=== PATIENT | female | born 1935 | race Caucasian/White ===

== ENCOUNTER → 2017-01-06 | Outpatient (CLI) | payer MEDICARE, BC ==
[2017-01-06 15:18] LABS: Amorphous Sediment,Urine Rare /hpf; Appearance,Urine Clear (Clear); Bilirubin,Urine Negative (Negative); Glucose,Urine (UA) Negative (Negative); Ketones,Urine Negative (Negative); Leukocyte Esterase,Urine Trace (Negative); Mucus,Urine Rare /hpf; Nitrite,Urine Negative (Negative); Particle Count 1363; Protein,Urine Negative (Negative); RBC,Urine 1 /hpf (0-5); Specific Gravity,Urine 1.017 (1.001-1.035); Squamous Epithelial Cell,Urine 2 /hpf (0-4); UA Billing (MACRO vs. MICRO) MICRO; Urobilinogen,Urine <2.0 mg/dL (<2.0); WBC,Urine 6 /hpf (0-5)
== END | disposition home or self-care (01) ==
LOC: LABWHC1 14:09
PROVIDERS: ATTEND Family Medicine
DX: N39.0 Urinary tract infection, site not specified (principal)
CPT/HCPCS: 81001; 87086

== ENCOUNTER 2017-06-29 10:02 | Inpatient (IN) | payer MEDICARE, BC ==
[2017-06-29 12:48] VITALS: BMI 26.2
--- NOTE | 2017-06-29 15:28 | US ---
EXAMINATION TYPE: US abdomen complete DATE OF EXAM: 06/29/2017 COMPARISON: NONE CLINICAL HISTORY: abdominal pain. EXAM MEASUREMENTS: Liver Length: 13.4 cm Gallbladder Wall: 0.1 cm CBD: 0.6 cm Spleen: 9.3 cm Right Kidney: 10.5 x 4.2 x 3.3 cm Left Kidney: 10.4 x 5.2 x 4.9 cm Pancreas: wnl tail obscured by bowel gas Liver: partially Obscured by overlying bowel gas Gallbladder: wnl Evidence for sonographic Neely's sign: no CBD: Within normal limits of this age group Spleen: wnl Right Kidney: wnl Left Kidney: mid pole cyst =0.9 x 1.0 x 0.8 cm and the kidneys show no hydronephrosis, cortical med ullary differentiation is maintained. Upper IVC: wnl as visualized Abd Aorta: wnl as visualized There is no ascites. IMPRESSION: Partially limited exam. No significant abnormalities evident.
[2017-06-29] MEDS: MEMANTINE 10 MG TAB PO SCH (20:52)
[2017-06-29] MEDS: LISINOPRIL 10 MG TAB PO SCH (20:52)
[2017-06-29] MEDS: METOPROLOL TARTRATE 25 MG TAB PO SCH (20:52)
[2017-06-29] MEDS ORDERED: ATORVASTATIN 80 MG TAB PO SCH (21:00)
[2017-06-29] MEDS ORDERED: DONEPEZIL 10 MG TAB PO SCH (21:00)
--- NOTE | 2017-06-29 22:13 | XR ---
EXAMINATION TYPE: XR chest 2V DATE OF EXAM: 06/29/2017 COMPARISON: Prior chest x-ray 11/07/2016 HISTORY: Dyspnea TECHNIQUE: Frontal and lateral views of the chest are obtained. FINDINGS: There is no focal air space opacity, pleural effusion, or pneumothorax seen. The cardiac silhouette size is stable, heart is enlarged. The patient is rotated. Prominent lung volumes may be indicative of COPD. Probable coronary artery calcification or stent noted. The osseous structures are intact. IMPRESSION: No acute cardiopulmonary process. Stable cardiomegaly.
[2017-06-30 06:19] LABS: Basophils % (A) 0 %; CH 27.6; CHCM 32.8; Eosinophils # (A) 0.2 k/uL (0-0.7); Eosinophils % (A) 3 %; HCT 39.5 % (34.0-46.0); HDW 2.43; HGB 13.7 gm/dL (11.4-16.0); Luc # (Auto) 0.14; Luc % (Auto) 2; Lymphocytes % (A) 34 %; MCH 29.2 pg (25.0-35.0); MCHC 34.6 g/dL (31.0-37.0); MCV 84.4 fL (80.0-100.0); Mean Platelet Volume 7.3; Monocytes # (A) 0.5 k/uL (0-1.0); Monocytes % (A) 5 %; Neutrophils # (A) 4.9 k/uL (1.3-7.7); Neutrophils % (A) 56 %; RBC 4.68 m/uL (3.80-5.40); RDW 13.6 % (11.5-15.5); WBC 8.7 k/uL (3.8-10.6); WBC (Perox) 8.56
[2017-06-30] MEDS ORDERED: LEVOTHYROXINE 25 MCG TAB PO SCH (06:30)
[2017-06-30 07:01] VITALS: RESP 12
[2017-06-30 07:01] LABS: Glucose,Whole Blood 85 mg/dL (75-99)
[2017-06-30 07:03] LABS: ALT 22 U/L (9-52); AST 26 U/L (14-36); Alkaline Phosphatase 108 U/L (38-126); Anion Gap 10 mmol/L; Blood Urea Nitrogen 19 mg/dL (7-17); Calcium 8.3 mg/dL (8.4-10.2); Carbon Dioxide 23 mmol/L (22-30); Chloride 113 mmol/L (98-107); Glucose 81 mg/dL (74-99); Non-African American GFR(MDRD) 51 (>60 ml/min/1.73 sqM); Potassium 4.2 mmol/L (3.5-5.1); Sodium 146 mmol/L (137-145); Total Bilirubin 0.6 mg/dL (0.2-1.3); Total Protein 5.8 g/dL (6.3-8.2)
[2017-06-30] MEDS: LISINOPRIL 10 MG TAB PO SCH (07:04)
[2017-06-30] MEDS: MEMANTINE 10 MG TAB PO SCH (07:05)
[2017-06-30] MEDS: METOPROLOL TARTRATE 25 MG TAB PO SCH (07:05)
[2017-06-30] MEDS ORDERED: CLOPIDOGREL 75 MG TAB PO SCH (09:00)
[2017-06-30] MEDS ORDERED: ASPIRIN 81 MG PO SCH (09:00)
[2017-06-30] MEDS ORDERED: MONTELUKAST 10 MG TAB PO SCH (09:00)
[2017-06-30] MEDS ORDERED: SODIUM CHLORIDE 0.9% 1,000 ML IV SCH (09:30)
[2017-06-30] MEDS ORDERED: RX INFO: IV CONTRAST WAS GIVEN 1 EACH MISC MISCELLANE PRN (09:46)
--- NOTE | 2017-06-30 11:01 | CT ---
EXAMINATION TYPE: CT brain wo con DATE OF EXAM: 06/30/2017 COMPARISON: 11/07/2016 INDICATION: Patient poor historian. History of dementia. Rule out CVA. DLP: 742.7 mGycm, Automated exposure control for dose reduction was used. CONTRAST: None CT of the brain is performed utilizing 3 mm thick sections through the posterior fossa and 3 mm thick sections through the remaining calvarium. Study is performed within 24 hours of arrival to the hosp ital. No abnormal hyperdensity is present to suggest an acute intracranial hemorrhage. No mass lesion is evident. No acute infarcts are evident. There is mild periventricular white matter hypodensity, likely on the basis of chronic white matter ischemic changes. Ventricles and sulci are prominent for the patient age. Paranasal sinuses and mastoid air cells within the [id number] are clear. IMPRESSIONS: 1. Atrophy with mild periventricular white matter ischemic changes, stable from October 2016
--- NOTE | 2017-06-30 11:17 | CT ---
EXAMINATION TYPE: CT abdomen w con DATE OF EXAM: 06/30/2017 COMPARISON: NONE INDICATION: Patient poor historian. Patient has abdominal pain. DLP: 398.8 mGycm, Automated exposure control for dose reduction was used. CONTRAST: 80 mL of Visipaque 320. Study performed without Oral Contrast TECHNIQUE: Axial images were obtained from above the diaphragm to the pubic rami in the axial plane a t 5 mm thick sections. Reconstructed images are reviewed on the computer in the coronal plane. FINDINGS: Limited CT sections are obtained the lung bases. Minimal areas of pneumonitis are at the lung bases which can be related to subsegmental atelectasis. Hiatal hernia is present. Some coronary artery calc ification is not excluded.. CT ABDOMEN: Liver: Normal Spleen: Normal Pancreas: Normal Adrenal glands: The adrenal glands are normal. Gallbladder: Normal Kidneys: No masses are evident. No hydronephrosis is present. No cysts are present. Delayed images were obtained through the kidneys, which remain unremarkable. Aorta: Vascular calcification is within the aorta. Inferior vena cava: Normal. Loops of bowel within the abdomen and pelvis are normal. Studies without oral contrast limiting t heir evaluation. Some distal descending colon diverticular changes are evident. Few scattered diverti culi are within the transverse and ascending colon within the [id number]. IMPRESSIONS: 1. Hiatal hernia. 2. Diverticulosis without acute diverticulitis within the visualized colon.
[2017-06-30] MEDS ORDERED: CHOLECALCIFEROL 1,000 UNIT TAB PO SCH (12:00)
[2017-06-30] MEDS ORDERED: MULTIVITAMINS, THERA 1 EACH TAB PO SCH (12:00)
[2017-06-30 12:20] LABS: Glucose,Whole Blood 145 mg/dL (75-99)
--- NOTE | 2017-06-30 12:46 | P.GSCN ---
History of Present Illness Consult date: 06/30/17 Reason for Consult: Abdominal pain History of present illness: 81-year-old female is being seen for a surgical evaluation at the request of the attending for a chief complaint of diffuse abdominal pain with frequent stooling. 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 Has no medical history recall is not able to provide any medical history or give information about current event patient does have a history of Alzheimer with dementia. Health history has been obtained by the 2 daughters at the bedside. The 2 daughters state the last 5 weeks they have been staying with her mother the house while her father recuperates from hernia repair. The 2 daughters state that they have noticed over the last several weeks the patient would be incontinent of stool especially at night. They state that she may have several loose watery stools. No blood noted in the stool Patient currently is resting comfortably in bed and palpating the abdominal wall does not elicit any facial grimacing. Questioning patient if patient is having any abdominal pain the patient stating no According to the daughter patient has had a poor appetite for the past several weeks not aware of the patient's past surgical history or medical history when questioning the daughters also state not certain if the mother has ever had a colonoscopy. Reviewing the prior computerized record in October 2016 past surgical history indicated patient has had cataract surgery, colonoscopy, tonsillectomy. Reviewing the computerized record in July 2014 patient did have a heart catheterization involving a single-vessel the LAD done by Dr. Whitt Review of Systems Not able to adequately obtain Past Medical History Past Medical History: Dementia, Diabetes Mellitus, Hypertension, Memory Impairment, Osteoarthritis (OA) History of Any Multi-Drug Resistant Organisms: None Reported Past Surgical History: Tonsillectomy Additional Past Surgical History / Comment(s): cataract surgery, colonoscopy, heart stent 2014 Past Anesthesia/Blood Transfusion Reactions: No Reported Reaction Past Psychological History: No Psychological Hx Reported Smoking Status: Never smoker Past Alcohol Use History: Rare Past Drug Use History: None Reported - Past Family History Mother Family Medical History: Asthma Father Family Medical History: Myocardial Infarction (SD) Additional Family Medical History / Comment(s): at 59 Medications and Allergies Home Medications Medication Instructions Recorded Confirmed Type Donepezil [Aricept] 10 mg PO HS 07/10/14 06/29/17 History Focus-Macular 1 tab PO BID 07/10/14 06/29/17 History Levothyroxine Sodium [Synthroid] 25 mcg PO DAILY 07/10/14 06/29/17 History Aspirin EC [Ecotrin Low Dose] 81 mg PO DAILY 11/07/16 06/29/17 History Cholecalciferol [Vitamin D3] 2,000 unit PO DAILY 11/07/16 06/29/17 History Diclofenac Sodium [Voltaren] 50 mg PO BID 11/07/16 06/29/17 History Memantine [Namenda] 10 mg PO BID 11/07/16 06/29/17 History Montelukast [Singulair] 10 mg PO DAILY 11/07/16 06/29/17 History Multivitamin [Multivitamins Adult 2 tab PO DAILY 06/29/17 06/29/17 History Gummies] Allergies Allergy/AdvReac Type Severity Reaction Status Date / Time Penicillins Allergy Unknown Verified 11/07/16 14:35 propoxyphene HCl Allergy Confusion Verified 11/07/16 14:35 [From Darvon] Surgical - Exam Vital Signs Temp Pulse Resp BP Pulse Ox 97 F L 75 16 197/81 95 06/29/17 12:06 06/29/17 12:06 06/29/17 12:06 06/29/17 12:06 06/29/17 12:06 GENERAL APPEARANCE: 81-year-old female patient is alert, oriented to self and place able to identify daughter's in no acute distress. Pleasant cooperative VITAL SIGNS: Reviewed HEENT: Head is normocephalic and atraumatic. Pupils are equal and reactive. The nares are patent. Oropharynx is clear without lesions. NECK: Supple without lymphadenopathy. Traches midline. HEART: S1, S2. Regular rate and rhythm. Denying chest pain no murmur LUNGS: No crackles or wheezes are heard. Adequate air movement bilaterally ABDOMEN: Soft, nontender, nondistended with good bowel sounds. No peritoneal signs. No palpable organomegaly or masses. EXTREMITIES: Normal skin color and turgor. No cyanosis, rash, ulceration, clubbing or edema. Radial pedal pulses are 2/4 bilaterally. Results - Labs 06/30/17 06:03 06/30/17 06:03 Abnormal Lab Results - Last 24 Hours (Table) 06/30/17 06/30/17 Range/Units 06:03 12:18 Sodium 146 H (137-145) mmol/L Chloride 113 H (98-107) mmol/L BUN 19 H (7-17) mg/dL POC Glucose (mg/dL) 145 H (75-99) mg/dL Calcium 8.3 L (8.4-10.2) mg/dL Total Protein 5.8 L (6.3-8.2) g/dL Albumin 3.3 L (3.5-5.0) g/dL Diabetes panel 06/30/17 Range/Units 06:03 Sodium 146 H (137-145) mmol/L Potassium 4.2 (3.5-5.1) mmol/L Chloride 113 H (98-107) mmol/L Carbon Dioxide 23 (22-30) mmol/L BUN 19 H (7-17) mg/dL Creatinine 1.04 (0.52-1.04) mg/dL Glucose 81 (74-99) mg/dL Calcium 8.3 L (8.4-10.2) mg/dL AST 26 (14-36) U/L ALT 22 (9-52) U/L Alkaline Phosphatase 108 (38-126) U/L Total Protein 5.8 L (6.3-8.2) g/dL Albumin 3.3 L (3.5-5.0) g/dL Calcium panel 06/30/17 Range/Units 06:03 Calcium 8.3 L (8.4-10.2) mg/dL Albumin 3.3 L (3.5-5.0) g/dL Pituitary panel 06/30/17 Range/Units 06:03 Sodium 146 H (137-145) mmol/L Potassium 4.2 (3.5-5.1) mmol/L Chloride 113 H (98-107) mmol/L Carbon Dioxide 23 (22-30) mmol/L BUN 19 H (7-17) mg/dL Creatinine 1.04 (0.52-1.04) mg/dL Glucose 81 (74-99) mg/dL Calcium 8.3 L (8.4-10.2) mg/dL Adrenal panel 06/30/17 Range/Units 06:03 Sodium 146 H (137-145) mmol/L Potassium 4.2 (3.5-5.1) mmol/L Chloride 113 H (98-107) mmol/L Carbon Dioxide 23 (22-30) mmol/L BUN 19 H (7-17) mg/dL Creatinine 1.04 (0.52-1.04) mg/dL Glucose 81 (74-99) mg/dL Calcium 8.3 L (8.4-10.2) mg/dL Total Bilirubin 0.6 (0.2-1.3) mg/dL AST 26 (14-36) U/L ALT 22 (9-52) U/L Alkaline Phosphatase 108 (38-126) U/L Total Protein 5.8 L (6.3-8.2) g/dL Albumin 3.3 L (3.5-5.0) g/dL Assessment and Plan Plan: Impression Present on admission abdominal pain unclear etiology Alzheimer's with dementia no behavior disturbance Coronary artery disease with prior coronary stenting LAD 2013 History of frequent falls CAT scan abdomen and pelvis done on 30 of June shows hiatal hernia diverticulosis with no evidence of diverticulitis Present on admission a history of frequent loose stools possible irritable bowel syndrome hypertension Plan Check stool studies No evidence of an acute abdomen Dietary to instruct patient on a diverticulosis diet Resume home meds as appropriate further surgical recommendations pending DVT and GI prophylaxis May benefit from a colonoscopy The above impression and plan of care have been discussed and directed by signing physician. Holley Kay nurse practitioner acting as scribe for signing physician.
--- NOTE | 2017-06-30 15:05 | CONS ---
Mrs. Marleny Sorenson is a 81-year-old lady with a known diagnosis of CAD, previous LAD stenting performed by Dr. Jenny Whitt as well as dilatation of diagonal branch in 2014. She has hypertension, hypothyroidism, bronchial asthma. She was admitted to the hospital by Dr. Prince Chatman with complaints of diarrhea that was persistent and dehydration. While she was here she became hypertensive and I was asked to see her in this regard. I saw the patient and also talked to the family. The patient at this time is in no distress, she is comfortable. Denies chest pain. Diarrhea has resolved. She has no shortness of breath. She is resting comfortably. There is no EKG in the chart and I requested for an EKG to performed. Her blood pressure which was elevated has come back to normal once her medications were resumed. She has a history of hypertension, bronchial asthma, hyperlipidemia, previous PCI. Her laboratory data suggests that her initial troponin was normal. Her renal function is normal and electrolyte profile and hemoglobin are acceptable. Platelet count is 158. PAST MEDICAL HISTORY: 1. Hypertension. 2. Hypercholesterolemia. 3. CAD with previous LAD stenting in 2013. 4. History of nondescript abdominal pain on and off. 5. History of bronchial asthma. MEDICATIONS AT HOME: Include Singulair, Lopressor, Namenda, Synthroid, Vasotec , Plavix, aspirin 81 mg daily, atorvastatin. ALLERGIES: PENICILLIN AND DARVON. On examination, blood pressure is 144/70, pulse rate is 68 per minute and regular. HEENT: Unremarkable. Fundus was not examined by me. NECK: Supple. There is no JVD. I do not hear a carotid bruit. HEART: Reveals S1/S2 heard normally. There is a soft systolic murmur left lower sternal border. LUNGS: Clear. ABDOMEN: Soft, nontender. LOWER EXTREMITIES: Reveal normal pulses. No edema. CENTRAL NERVOUS SYSTEM: Normal. EKG is pending. IMPRESSION: 1. Patient is here with diarrhea but the diarrhea has resolved. Electrolytes look quite alright. There is no reflexion of any electrolyte imbalance at this time. 2. Stable coronary artery disease with previous stenting. No evidence of any angina. 3. Hypertension which was not well controlled yesterday, appears to be under good control with resumption of medications. 4. Bronchial asthma. 5. Hypothyroidism. RECOMMENDATIONS: I am recommending that her current medical regimen is good. We can continue the same medications and she can be discharged whenever it is okay with Dr. Prince Chatman. Her BP has been optimized. Her medications including beta marco a and lisinopril have been resumed. I am recommending that we discontinue Plavix and continue aspirin 81 mg daily and she can then be discharged. I discussed my thoughts in detail with the patient. Thank you very much for the consult. NEEL
[2017-06-30 15:23] VITALS: BP 143/82; PULSE 97; TEMP 98.4
[2017-06-30 17:05] LABS: Glucose,Whole Blood 112 mg/dL (75-99)
[2017-06-30] MEDS ORDERED: LISINOPRIL 10 MG TAB PO SCH (21:00)
[2017-06-30] MEDS ORDERED: FAMOTIDINE 20 MG TAB PO SCH (21:00)
[2017-06-30] MEDS ORDERED: LISINOPRIL 20 MG TAB PO SCH (21:00)
[2017-07-01] MEDS ORDERED: LISINOPRIL 20 MG TAB PO SCH (09:00)
--- NOTE | 2017-08-21 07:15 | HP ---
HISTORY AND PHYSICAL CHIEF COMPLAINT: 81-year-old, white female, history of coronary artery disease. Previous LAD stenting with hypertension, hypothyroidism, asthma. She had diarrhea significant nature persistent. She was dehydrated and became hypertensive with acceleration and severe dehydration. At which time she was admitted to the hospital. She has a history of bronchial asthma, dyslipidemia, hypertension, coronary artery disease with stenting in 2013, bronchial asthma. HOME MEDICINES: 1. Singular. 2. Lopressor. 3. Namenda. 4. Synthroid. 5. Vasotec. 6. Plavix. 7. Aspirin. 8. Atorvastatin. ALLERGIES: PENICILLIN AND DARVON. PHYSICAL EXAMINATION: Blood pressure 144/70, pulse is 68 and regular. HEENT: Normocephalic, atraumatic. Neck is supple. No JVD. Heart are S1, S2. Lungs are clear. Abdomen is soft, nontender. Extremities no cyanosis, clubbing, or edema. EKG is pending. ASSESSMENT: 1. Dehydration, diarrhea. 2. Dizziness secondary to dehydration. 3. Stable coronary artery disease with stents. 4. Hypertension. 5. Bronchial asthma. 6. Hypothyroidism. PLAN: IV fluid, rehydration for dizziness and diarrhea will be assessed by surgeon or Gastroenterology doctor. Hypertension acceleration will be treated with beta blockers, lisinopril and Cardiology consult for hypertension acceleration. MMODL / IJN: [id number] /
== END 2017-06-30 16:10 | disposition home or self-care (01) | DRG 641 ==
LOC: 3SUR 11:49
PROVIDERS: ADMIT Family Medicine; ATTEND Family Medicine
DX: E86.0 Dehydration (principal); G30.9 Alzheimer's disease, unspecified; R15.9 Full incontinence of feces; E11.9 Type 2 diabetes mellitus without complications; F02.80 Dementia in other diseases classified elsewhere, unspecified severity, without behavioral disturbance, psychotic disturbance, mood disturbance, and anxiety; K58.0 Irritable bowel syndrome with diarrhea; R10.9 Unspecified abdominal pain; I10 Essential (primary) hypertension; I25.10 Atherosclerotic heart disease of native coronary artery without angina pectoris; E03.9 Hypothyroidism, unspecified; E78.00 Pure hypercholesterolemia, unspecified; R29.6 Repeated falls; M19.90 Unspecified osteoarthritis, unspecified site; K57.90 Diverticulosis of intestine, part unspecified, without perforation or abscess without bleeding; J45.909 Unspecified asthma, uncomplicated; K44.9 Diaphragmatic hernia without obstruction or gangrene; Z88.5 Allergy status to narcotic agent; Z88.0 Allergy status to penicillin; Z79.82 Long term (current) use of aspirin; Z79.899 Other long term (current) drug therapy; Z82.5 Family history of asthma and other chronic lower respiratory diseases; Z95.5 Presence of coronary angioplasty implant and graft; Z82.49 Family history of ischemic heart disease and other diseases of the circulatory system; Z98.49 Cataract extraction status, unspecified eye; Z91.81 History of falling; Z79.02 Long term (current) use of antithrombotics/antiplatelets; Z79.1 Long term (current) use of non-steroidal anti-inflammatories (NSAID)
CPT/HCPCS: 70450; 71020; 74160; 76700; 80053; 83690; 83880; 84484; 85025; 85379; 93005

== ENCOUNTER 2017-07-27 08:02 | Day surgery (SDC) | payer MEDICARE, BC ==
[2017-07-26 10:08] VITALS: BMI 26.2
[~2017-07-27 08:02] MED LIST: LACTATED RINGERS 1,000 ML IV SCH; LIDOCAINE 1% 20 ML VIAL (10MG/ML) FOR IV START INTRADERMA PRN
[2017-07-27 08:49] VITALS: TEMP 98
[2017-07-27] MEDS ORDERED: GLYCOPYRROLATE 0.2 MG/ML 2 ML VIAL ONE (09:02)
[2017-07-27] MEDS ORDERED: PROPOFOL 10 MG/ML 20 ML VIAL IV ONE (09:02)
[2017-07-27] MEDS ORDERED: LIDOCAINE 1% INJ 10MG/ML (20 ML MDV) ONE (09:02)
--- NOTE | 2017-07-27 09:06 | P.GSHP ---
History of Present Illness H&P Date: 07/27/17 Chief Complaint: GERD, dysphagia, diverticulitis This is a 81-year-old female who's had complaints of abdominal pain. Her recent CAT scan shows evidence of a hiatal hernia and diverticulitis. She presents today for colonoscopy. Past Medical History Past Medical History: Dementia, Diabetes Mellitus, Hyperlipidemia, Hypertension , Memory Impairment, Osteoarthritis (OA), Thyroid Disorder Additional Past Medical History / Comment(s): ALZHEIMER'S History of Any Multi-Drug Resistant Organisms: None Reported Past Surgical History: Heart Catheterization With Stent, Tonsillectomy Additional Past Surgical History / Comment(s): cataract surgery, colonoscopy, Past Anesthesia/Blood Transfusion Reactions: No Reported Reaction Date of Last Stent Placement:: 2014 Smoking Status: Never smoker - Past Family History Mother Family Medical History: Asthma Father Family Medical History: Deep Vein Thrombosis (DVT), Myocardial Infarction (NM) Additional Family Medical History / Comment(s): at 59 Sister(s) Family Medical History: Cancer Additional Family Medical History / Comment(s): 2 SISTERS HAD CANCER Medications and Allergies Home Medications Medication Instructions Recorded Confirmed Type Donepezil [Aricept] 10 mg PO HS 07/10/14 07/27/17 History Focus-Macular 1 tab PO BID 07/10/14 07/27/17 History Levothyroxine Sodium [Synthroid] 25 mcg PO DAILY 07/10/14 07/27/17 History Atorvastatin [Lipitor] 80 mg PO HS #30 tab 07/17/14 07/27/17 Rx Clopidogrel [Plavix] 75 mg PO DAILY #30 tab 07/17/14 07/27/17 Rx Enalapril [Vasotec] 5 mg PO BID #60 tab 07/17/14 07/27/17 Rx Metoprolol Tartrate [Lopressor] 25 mg PO BID #60 tab 07/17/14 07/27/17 Rx Nitroglycerin Sl Tabs [Nitrostat] 0.4 mg SUBLINGUAL Q5M PRN #25 tab 07/17/14 Rx Aspirin EC [Ecotrin Low Dose] 81 mg PO DAILY 11/07/16 07/27/17 History Cholecalciferol [Vitamin D3] 2,000 unit PO DAILY 11/07/16 07/27/17 History Diclofenac Sodium [Voltaren] 50 mg PO BID 11/07/16 07/27/17 History Montelukast [Singulair] 10 mg PO DAILY 11/07/16 07/27/17 History Multivitamin [Multivitamins Adult 2 tab PO DAILY 06/29/17 07/27/17 History Gummies] Allergies Allergy/AdvReac Type Severity Reaction Status Date / Time Penicillins Allergy Unknown Verified 07/27/17 08:22 propoxyphene HCl Allergy Confusion Verified 07/27/17 08:22 [From Darryl] Surgical - Exam Vital Signs Temp Pulse Resp BP Pulse Ox 98.0 F 56 L 16 158/58 99 07/27/17 08:48 07/27/17 08:48 07/27/17 08:48 07/27/17 08:48 07/27/17 08:48 - General well developed, no distress - Eyes PERRL - ENT normal pinna - Neck no masses - Respiratory normal expansion - Cardiovascular Rhythm: regular - Abdomen Abdomen: soft, non tender Assessment and Plan Plan: History of. Xylocaine diverticulitis. We'll perform EGD and colonoscopy.
[2017-07-27 09:11] LABS: Glucose,Whole Blood 109 mg/dL (75-99)
--- NOTE | 2017-07-27 09:41 | P.OP ---
Date of Procedure: 07/27/17 Preoperative Diagnosis: GERD Diverticulitis Postoperative Diagnosis: Antral gastritis Large hiatal hernia Esophagitis Severe diverticulosis of sigmoid left colon Procedure(s) Performed: EGD and colonoscopy Anesthesia: MAC Surgeon: Blu Figueroa Pathology: other (Antrum, esophagus) Condition: stable Disposition: PACU Description of Procedure: The patient's placed on the endoscopy table in the lateral position. She received IV sedation. The gastroscope placed oropharynx and passed in the esophagus and into the stomach. The scope was then placed through the pylorus. The first second portion of the duodenum appeared normal. The scope was then brought back the antrum is appeared mildly inflamed. A biopsies performed. The scope was then retroflexed and the remainder of the stomach appeared normal. There was a large hiatal hernia seen. The GE junction was at 37 cm. The distal esophagus was mildly inflamed and a biopsies performed. The proximal esophagus. Normal. The scope was withdrawn for patient. Next digital rectal exam was performed which revealed no abnormalities. The flexible colonoscope was then placed patient anus passed throughout the entire colon. The ileocecal valve sutures. The cecum, ascending and transverse colon appeared normal. In the descending; there is severe diverticulosis. There is known to back to diverticulitis. The scope was then brought back the rectum and this appeared normal. Scope was withdrawn for patient.
[2017-07-27 09:45] VITALS: RESP 16
[2017-07-27 10:08] VITALS: BP 126/74; PULSE 75
== END 2017-07-27 10:27 | disposition home or self-care (01) ==
LOC: ORWHC2ENDO 08:02
PROVIDERS: ATTEND Surgery
DX: K29.50 Unspecified chronic gastritis without bleeding (principal); K20.9 Esophagitis, unspecified; K44.9 Diaphragmatic hernia without obstruction or gangrene; K57.30 Diverticulosis of large intestine without perforation or abscess without bleeding; E11.9 Type 2 diabetes mellitus without complications; E78.5 Hyperlipidemia, unspecified; I10 Essential (primary) hypertension; M19.90 Unspecified osteoarthritis, unspecified site; E07.9 Disorder of thyroid, unspecified; Z95.5 Presence of coronary angioplasty implant and graft; G30.9 Alzheimer's disease, unspecified; F02.80 Dementia in other diseases classified elsewhere, unspecified severity, without behavioral disturbance, psychotic disturbance, mood disturbance, and anxiety; I25.10 Atherosclerotic heart disease of native coronary artery without angina pectoris; Z79.02 Long term (current) use of antithrombotics/antiplatelets; Z79.82 Long term (current) use of aspirin; Z79.899 Other long term (current) drug therapy; Z88.0 Allergy status to penicillin; Z88.8 Allergy status to other drugs, medicaments and biological substances
CPT/HCPCS: 88305; 88342; 45378; 43239; J2001; J2704

== ENCOUNTER → 2017-08-18 | Outpatient (CLI) | payer MEDICARE, BC ==
--- NOTE | 2017-08-22 07:17 | MM ---
Reason for exam: screening (asymptomatic). Last mammogram was performed 1 year ago. History: Patient is postmenopausal. Family history of breast cancer in aunt and breast cancer in sister at age 25. 2 benign excisional biopsies of the right breast. Physical Findings: A clinical breast exam by your physician is recommended on an annual basis and results should be correlated with mammographic findings. MG Screening Mammo w CAD Bilateral CC and MLO view(s) were taken. Prior study comparison: August 11, 2016, bilateral MG 3d screening mammo w/cad. July 02, 2015, bilateral MG screening mammo w CAD. The breast tissue is almost entirely fat. Bilateral benign secretory calcifications. No significant changes when compared with prior studies. ASSESSMENT: Negative, BI-RAD 1 RECOMMENDATION: Routine screening mammogram of both breasts in 1 year.
== END | disposition home or self-care (01) ==
LOC: RADMAMWWP 16:41
PROVIDERS: ATTEND Family Medicine
DX: Z12.31 Encounter for screening mammogram for malignant neoplasm of breast (principal)

== ENCOUNTER 2019-07-10 12:18 | Inpatient (IN) | payer BC, MEDICARE ==
[2019-07-10] MEDS ORDERED: ASPIRIN 81 MG PO STA (12:45)
[2019-07-10] MEDS ORDERED: NITROGLYCERIN OINT 1 INCH/GM PACKET TOPICAL STA (12:45)
--- NOTE | 2019-07-10 13:54 | XR ---
EXAMINATION TYPE: XR chest 2V DATE OF EXAM: 07/10/2019 COMPARISON: 06/29/2017 HISTORY: 83-year-old female with chest pain TECHNIQUE: AP and lateral views FINDINGS: Heart is mildly enlarged. Diffuse interstitial prominence. No consolidation or pleural effusion. IMPRESSION: Mild cardiomegaly. Diffuse interstitial densities likely in part chronic. Correlate for possible mild pulmonary vascular congestion.
--- NOTE | 2019-07-10 13:57 | ED ---
General Adult HPI - General Chief complaint: Chest Pain Stated complaint: chest pain Time Seen by Provider: 07/10/19 12:30 Source: family, RN notes reviewed Mode of arrival: wheelchair Limitations: altered mental status - History of Present Illness Initial comments: This is an 83-year-old female who is brought into the emergency department by her . Patient is unable to communicate however somehow believes the patient is having chest pain though she is unable to tell us. states she was putting her hands on her chest or upper belly earlier today and then vomited times one he gave her 3 nitroglycerin at home. Patient still was occasionally putting her hands on her upper belly and chest and so he determined that she was having chest pain and decided to bring the patient to the emergency department. Patient cannot give any history. states the patient has had no recent fevers she had no time appeared to be short of breath. The patient had only 1 of vomiting and no episodes of diarrhea. - Related Data Home Medications Medication Instructions Recorded Confirmed Donepezil [Aricept] 10 mg PO DAILY 07/10/14 07/10/19 Levothyroxine Sodium [Synthroid] 25 mcg PO DAILY 07/10/14 07/10/19 Aspirin EC [Ecotrin Low Dose] 81 mg PO DAILY 11/07/16 07/10/19 Cholecalciferol [Vitamin D3] 1,000 unit PO DAILY 11/07/16 07/10/19 Diclofenac Sodium [Voltaren] 50 mg PO DAILY 11/07/16 07/10/19 Memantine [Namenda] 10 mg PO BID 07/10/19 07/10/19 Previous Rx's Medication Instructions Recorded Atorvastatin [Lipitor] 80 mg PO HS #30 tab 07/17/14 Enalapril [Vasotec] 5 mg PO BID #60 tab 07/17/14 Metoprolol Tartrate [Lopressor] 25 mg PO BID #60 tab 07/17/14 Nitroglycerin Sl Tabs [Nitrostat] 0.4 mg SUBLINGUAL Q5M PRN #25 tab 07/17/14 Allergies Allergy/AdvReac Type Severity Reaction Status Date / Time Penicillins Allergy Unknown Verified 07/10/19 13:02 propoxyphene HCl Allergy Confusion Verified 07/10/19 13:02 [From Darryl] Review of Systems ROS Statement: Those systems with pertinent positive or pertinent negative responses have been documented in the HPI. ROS Other: All systems not noted in ROS Statement are negative. Past Medical History Past Medical History: Dementia, Diabetes Mellitus, Hyperlipidemia, Hypertension, Memory Impairment, Osteoarthritis (OA), Thyroid Disorder Additional Past Medical History / Comment(s): ALZHEIMER'S History of Any Multi-Drug Resistant Organisms: None Reported Past Surgical History: Heart Catheterization With Stent, Tonsillectomy Additional Past Surgical History / Comment(s): cataract surgery, colonoscopy, Past Anesthesia/Blood Transfusion Reactions: No Reported Reaction Date of Last Stent Placement:: 2014 Past Psychological History: No Psychological Hx Reported Smoking Status: Never smoker Past Alcohol Use History: None Reported Past Drug Use History: None Reported - Past Family History Mother Family Medical History: Asthma Father Family Medical History: Deep Vein Thrombosis (DVT), Myocardial Infarction ([place]) Additional Family Medical History / Comment(s): at 59 Sister(s) Family Medical History: Cancer Additional Family Medical History / Comment(s): 2 SISTERS HAD CANCER General Exam - General Exam Comments Initial Comments: GENERAL: Patient is well-developed and well-nourished. Patient is nontoxic and well- hydrated and is in no distress. ENT: Neck is soft and supple. No significant lymphadenopathy is noted. Oropharynx is clear. Moist mucous membranes. Neck has full range of motion without eliciting any pain. EYES: The sclera were anicteric and conjunctiva were pink and moist. Extraocular movements were intact and pupils were equal round and reactive to light. Eyelids were unremarkable. PULMONARY: Unlabored respirations. Good breath sounds bilaterally. No audible rales rhonchi or wheezing was noted. CARDIOVASCULAR: There is a regular rate and rhythm without any murmurs gallops or rubs. ABDOMEN: Soft and nontender with normal bowel sounds. SKIN: Skin is clear with no lesions or rashes and otherwise unremarkable. NEUROLOGIC: Patient is alert and oriented 1. Cranial nerves II through XII are grossly intact. Motor intact. Symmetrical smile. MUSCULOSKELETAL: Normal extremities with adequate strength and full range of motion. LYMPHATICS: No significant lymphadenopathy is noted PSYCHIATRIC: Unable to assess Limitations: altered mental status Course Vital Signs 07/10/19 07/10/19 07/10/19 12:30 14:08 15:00 Temperature 97.9 F Pulse Rate 54 L 45 L Respiratory 22 18 17 Rate Blood Pressure 118/92 150/72 O2 Sat by Pulse 95 99 Oximetry Medical Decision Making - Medical Decision Making EKG shows sinus bradycardia 52 bpm RI interval 256 QRS is 86 QT interval 468 QTC is 435. - Lab Data Result diagrams: 07/10/19 13:45 07/10/19 13:45 Lab Results 07/10/19 07/10/19 07/10/19 Range/Units 13:45 13:45 13:45 WBC 18.4 H (3.8-10.6) k/uL RBC 4.89 (3.80-5.40) m/uL Hgb 13.1 (11.4-16.0) gm/dL Hct 40.9 (34.0-46.0) % MCV 83.5 (80.0-100.0) fL MCH 26.8 (25.0-35.0) pg MCHC 32.1 (31.0-37.0) g/dL RDW 16.1 H (11.5-15.5) % Plt Count 258 (150-450) k/uL Neutrophils % 85 % Lymphocytes % 10 % Monocytes % 2 % Eosinophils % 1 % Basophils % 0 % Neutrophils # 15.6 H (1.3-7.7) k/uL Lymphocytes # 1.9 (1.0-4.8) k/uL Monocytes # 0.4 (0-1.0) k/uL Eosinophils # 0.3 (0-0.7) k/uL Basophils # 0.1 (0-0.2) k/uL Anisocytosis Slight PT 10.1 (9.0-12.0) sec INR 0.9 (<1.2) APTT 21.5 L (22.0-30.0) sec Sodium 143 (137-145) mmol/L Potassium 5.3 H (3.5-5.1) mmol/L Chloride 106 (98-107) mmol/L Carbon Dioxide 28 (22-30) mmol/L Anion Gap 9 mmol/L BUN 21 H (7-17) mg/dL Creatinine 1.00 (0.52-1.04) mg/dL Est GFR (CKD-EPI)AfAm 62 (>60 ml/min/1.73 sqM) Est GFR (CKD-EPI)NonAf 53 (>60 ml/min/1.73 sqM) Glucose 157 H (74-99) mg/dL Calcium 9.2 (8.4-10.2) mg/dL Magnesium 2.1 (1.6-2.3) mg/dL Total Bilirubin 0.5 (0.2-1.3) mg/dL AST 24 (14-36) U/L ALT 25 (9-52) U/L Alkaline Phosphatase 130 H (38-126) U/L Troponin I (0.000-0.034) ng/mL Total Protein 7.1 (6.3-8.2) g/dL Albumin 4.3 (3.5-5.0) g/dL 07/10/19 Range/Units 13:45 WBC (3.8-10.6) k/uL RBC (3.80-5.40) m/uL Hgb (11.4-16.0) gm/dL Hct (34.0-46.0) % MCV (80.0-100.0) fL MCH (25.0-35.0) pg MCHC (31.0-37.0) g/dL RDW (11.5-15.5) % Plt Count (150-450) k/uL Neutrophils % % Lymphocytes % % Monocytes % % Eosinophils % % Basophils % % Neutrophils # (1.3-7.7) k/uL Lymphocytes # (1.0-4.8) k/uL Monocytes # (0-1.0) k/uL Eosinophils # (0-0.7) k/uL Basophils # (0-0.2) k/uL Anisocytosis PT (9.0-12.0) sec INR (<1.2) APTT (22.0-30.0) sec Sodium (137-145) mmol/L Potassium (3.5-5.1) mmol/L Chloride (98-107) mmol/L Carbon Dioxide (22-30) mmol/L Anion Gap mmol/L BUN (7-17) mg/dL Creatinine (0.52-1.04) mg/dL Est GFR (CKD-EPI)AfAm (>60 ml/min/1.73 sqM) Est GFR (CKD-EPI)NonAf (>60 ml/min/1.73 sqM) Glucose (74-99) mg/dL Calcium (8.4-10.2) mg/dL Magnesium (1.6-2.3) mg/dL Total Bilirubin (0.2-1.3) mg/dL AST (14-36) U/L ALT (9-52) U/L Alkaline Phosphatase (38-126) U/L Troponin I <0.012 (0.000-0.034) ng/mL Total Protein (6.3-8.2) g/dL Albumin (3.5-5.0) g/dL Disposition Clinical Impression: Leukocytosis, Vomiting, Chest pain Disposition: ADMITTED IP TO THIS HOSP Referrals: Prince Chatman MD [Primary Care Provider] - 1-2 days Time of Disposition: 16:02
[2019-07-10 14:01] LABS: Anisocytosis Slight; Basophils % (A) 0 %; Eosinophils % (A) 1 %; HCT 40.9 % (34.0-46.0); HGB 13.1 gm/dL (11.4-16.0); Lymphocytes % (A) 10 %; MCH 26.8 pg (25.0-35.0); MCHC 32.1 g/dL (31.0-37.0); MCV 83.5 fL (80.0-100.0); Mean Platelet Volume 7.8; Monocytes % (A) 2 %; Neutrophils % (A) 85 %; Platelet Count 258 k/uL (150-450); RBC 4.89 m/uL (3.80-5.40); RDW 16.1 % (11.5-15.5); WBC 18.4 k/uL (3.8-10.6)
[2019-07-10 14:02] LABS: Basophils # (A) 0.1 k/uL (0-0.2); Eosinophils # (A) 0.3 k/uL (0-0.7); Lymphocytes # (A) 1.9 k/uL (1.0-4.8); Monocytes # (A) 0.4 k/uL (0-1.0); Neutrophils # (A) 15.6 k/uL (1.3-7.7)
[2019-07-10 14:16] LABS: INR 0.9 (<1.2); Partial Thromboplastin Time 21.5 sec (22.0-30.0); Prothrombin Time 10.1 sec (9.0-12.0)
[2019-07-10 14:19] LABS: Albumin 4.3 g/dL (3.5-5.0); Calcium 9.2 mg/dL (8.4-10.2); Magnesium 2.1 mg/dL (1.6-2.3); Potassium 5.3 mmol/L (3.5-5.1); Total Bilirubin 0.5 mg/dL (0.2-1.3); Total Protein 7.1 g/dL (6.3-8.2)
[2019-07-10] MEDS ORDERED: SODIUM CHLORIDE 0.9% 1,000 ML IV ONE (16:02)
[2019-07-10] MEDS ORDERED: NITROGLYCERIN SL TABS 0.4 MG TAB SUBLINGUAL PRN (18:30)
[2019-07-10] MEDS: MEMANTINE 10 MG TAB PO SCH (20:12)
[2019-07-10] MEDS: LISINOPRIL 10 MG TAB PO SCH (20:12)
[2019-07-10] MEDS: ATORVASTATIN 80 MG TAB PO SCH (20:12)
[2019-07-10 20:34] LABS: Glucose,Whole Blood 129 mg/dL (75-99)
--- NOTE | 2019-07-10 20:46 | CT ---
EXAMINATION TYPE: CT ChestAbdPelvis wo con DATE OF EXAM: 07/10/2019 INDICATION: Chest and abdominal pain, nausea and vomiting. COMPARISON: CT abdomen 06/30/2017 CT DLP: 590.5 mGycm CONTRAST: Performed without Oral Contrast TECHNIQUE: Axial images at 5 mm thick sections. Reconstructed images in the coronal plane. Delayed images through the kidneys. FINDINGS: CT CHEST: Portion of the thyroid visualized is normal. No suspicious lung nodules or focal infiltrates are present. No enlarged mediastinal or hilar adenopathy is evident. The ascending aorta diameter at the level of the main pulmonary artery is 3.0 cm. The main pulmonary artery diameter at the bifurcation is 2.5 cm. Some coronary artery calcifications present. Moderate size hiatal hernia is present. CT ABDOMEN: Liver: Normal Spleen: Normal Pancreas: There is some ill-defined hypodensity within the anterior head of the pancreas. Potentially this could be dilated duct low density somewhat greater than expected. Underlying mass should be con sidered. Recommend ultrasound pancreas for additional evaluation. Adrenal glands: The adrenal glands are normal. Gallbladder: Normal Kidneys: No masses are evident. No hydronephrosis is present. No cysts are present. No renal stone s are evident. Aorta: Vascular calcification is within the aorta. Inferior vena cava: Normal. CT PELVIS: Loops of bowel within the abdomen and pelvis are normal. Scattered diverticuli within the sigmoid colon. Appendix: Normal as visualized. Urinary bladder: Decompressed with limited evaluation. Genitourinary structures: Uterus appears normal. Adnexal regions appear normal. There is a large calc ification on the right adnexal region could be related to vascular calcification. Typical appearance for dermoid is not present. Osseous structures: No suspicious lytic or sclerotic lesions. Facet degenerative changes are present. IMPRESSIONS: 1. Moderate-sized hiatal hernia. 2. Ill-defined hypodensity within the head of the pancreas measuring 3.5 x 1.2 cm. Additional evaluat ion for possible neoplasm with ultrasound is recommended. Differential diagnosis could include pancre atitis. 3. Diverticulosis without acute diverticulitis within the sigmoid colon. 4. Large calcification right adnexal region is nonspecific.
[2019-07-10] MEDS: METOPROLOL TARTRATE 25 MG TAB PO SCH (22:59)
[2019-07-11] MEDS: LEVOTHYROXINE 25 MCG TAB PO SCH (05:57)
[2019-07-11 06:35] LABS: Albumin 3.6 g/dL (3.5-5.0); Calcium 8.5 mg/dL (8.4-10.2); Potassium 3.7 mmol/L (3.5-5.1); Total Bilirubin 0.6 mg/dL (0.2-1.3); Total Protein 6.1 g/dL (6.3-8.2)
[2019-07-11 06:37] LABS: Basophils # (A) 0.1 k/uL (0-0.2); Basophils % (A) 0 %; Eosinophils # (A) 0.1 k/uL (0-0.7); Eosinophils % (A) 1 %; HCT 39.8 % (34.0-46.0); HGB 12.6 gm/dL (11.4-16.0); Lymphocytes # (A) 2.3 k/uL (1.0-4.8); Lymphocytes % (A) 16 %; MCH 26.7 pg (25.0-35.0); MCHC 31.8 g/dL (31.0-37.0); MCV 83.9 fL (80.0-100.0); Mean Platelet Volume 7.6; Monocytes # (A) 0.8 k/uL (0-1.0); Monocytes % (A) 5 %; Neutrophils # (A) 11.6 k/uL (1.3-7.7); Neutrophils % (A) 77 %; Platelet Count 228 k/uL (150-450); RBC 4.74 m/uL (3.80-5.40); RDW 15.7 % (11.5-15.5)
[2019-07-11 06:48] LABS: Glucose,Whole Blood 104 mg/dL (75-99)
--- NOTE | 2019-07-11 07:29 | HP ---
HISTORY AND PHYSICAL An 83-year-old white female came to emergency room with her with some chest pain. chest and her upper belly, she vomited at home x1. Gave her 3 nitroglycerins at home. She continues to put her hands on her upper belly and chest and anterior chest. Had a white count of 18,000. CAT scans have been ordered of the lungs and abdomen. No diarrhea, some cough, congestion. HOME MEDICINES: 1. Aricept 10 mg daily. 2. Synthroid 45 mcg daily. 3. Namenda 10 b.i.d. 4. Voltaren 50 mg daily. 5. Vitamin D 1000 daily. ALLERGIES: To PENICILLIN and DARVON. 14 POINT REVIEW OF SYSTEMS: Negative except for as mentioned in HPI. PAST MEDICAL HISTORY: Dementia, diabetes mellitus, dyslipidemia, hypertension, osteoarthritis, hypothyroidism, Alzheimer's. SURGERY: Heart catheterization with stent, tonsillectomy, cataract surgery, colonoscopy. No smoke. FAMILY HISTORY: Father DVT, myocardial infarction. Sister cancer. VITAL SIGNS: Stable, afebrile. CARDIOVASCULAR: S1, S2. LUNGS: Transmitted upper airway sounds. HEMATOLOGY: Negative Homans. PSYCH: Pleasant mood and affect. Alert and oriented x1. GI: Some mild tenderness to palpation epigastric. Appears in no acute respiratory distress. Blood pressure 118 to 150/72 to 92, O2 is 95% to 99% on room air. Temp 97.9, pulse 45- 54. White count is 18.4, hemoglobin 13.1. ASSESSMENT: 1. Leukocytosis. 2. Vomiting, chest pain, RO myocardial infarction. Rule out pancreatitis. CAT scan of the abdomen and chest, and urine culture have been ordered. Cardiology consult for chest pain and possible elevated troponin . MMODL / IJN: [id number] /
[2019-07-11] MEDS ORDERED: HEPARIN SODIUM,PORCINE 5,000 UNIT/ML 1 ML VIAL IV PRN (07:57)
[2019-07-11] MEDS ORDERED: HEPARIN SODIUM,PORCINE 5,000 UNIT/ML 1 ML VIAL IV ONE (07:57)
[2019-07-11] MEDS ORDERED: HEPARIN SOD,PORK IN 0.45% NACL 25,000 UNIT in 0.45% NACL 1 250ML.BAG IV SCH (08:00)
[2019-07-11 09:06] LABS: INR 0.9 (<1.2); Partial Thromboplastin Time 24.7 sec (22.0-30.0); Prothrombin Time 10.2 sec (9.0-12.0)
[2019-07-11 09:09] LABS: Appearance,Urine Cloudy (Clear); Bacteria,Urine Many /hpf; Bilirubin,Urine Negative (Negative); Blood,Urine Negative (Negative); Color,Urine Yellow; Glucose,Urine (UA) Negative (Negative); Ketones,Urine Negative (Negative); Leukocyte Esterase,Urine Moderate (Negative); Mucus,Urine Rare /hpf; Nitrite,Urine Positive (Negative); PH, Urine 5.5 (5.0-8.0); Protein,Urine Negative (Negative); RBC,Urine 6 /hpf (0-5); Specific Gravity,Urine 1.017 (1.001-1.035); Squamous Epithelial Cell,Urine 12 /hpf (0-4); Urobilinogen,Urine <2.0 mg/dL (<2.0)
--- NOTE | 2019-07-11 09:46 | US ---
EXAMINATION TYPE: US abdomen complete DATE OF EXAM: 07/11/2019 COMPARISON: CT abdomen pelvis dated 07/10/2019 CLINICAL HISTORY: pancreas cyst. EXAM MEASUREMENTS: Liver Length: 14.5 cm Gallbladder Wall: 0.6 cm CBD: 0.6 cm Spleen: 8.1 cm Right Kidney: 9.5 x 3.5 x 4.1 cm Left Kidney: 9.2 x 4.4 x 4.3 cm Confused patient unable to cooperate with examiner with severe overlying bowel gas. Pancreas: Mostly obscured by overlying bowel gas, unable to visualize area seen on ct Liver: some portions obscured by overlying bowel gas, viewed portions wnl Gallbladder: wall thickened, some pericholecystic fluid surrounding, probable sludge Evidence for sonographic Neely's sign: no CBD: dilated Spleen: wnl Right Kidney: No hydronephrosis or masses seen, inferior pole obscured by bowel gas Left Kidney: Inferior pole obscured by bowel gas, cyst measuring 1.1cm Upper IVC: wnl Abd Aorta: mostly obscured by overlying bowel gas, portions visualized wnl IMPRESSION: 1. Findings concerning for acute cholecystitis with dilated common bile duct, pericholecystic fluid, biliary sludge, and gallbladder wall thickening. Correlate with physical exam and serum laboratory va lues. HIDA scan could be considered if clinical and laboratory findings are equivocal. 2. The exam is severely limited by extensive bowel gas. The pancreas is markedly suboptimally visuali zed and overall nondiagnostic. For better characterization of the pancreas considering the questioned mass on the recent CT, enhanced MR abdomen (pancreatic mass protocol) would be recommended. 3. Limited evaluation of the kidneys, liver, and aorta with left renal cyst identified.
--- NOTE | 2019-07-11 10:43 | P.CRDCN ---
History of Present Illness History of present illness: This is a pleasant 83-year-old female past medical history significant for coronary artery disease s/p stent placement to the mid-LAD in 2013, hypertension and dyslipidemia, hypothyroidism and advanced dementia. She follows in the office with Dr. Paulino. We have been asked to see her in consultation secondary to chest discomfort. Per her who gives most of the history she was complaining yesterday of a heavy sensation in the left precordial region. He does not recall her complaining of any pain in the back, arm, neck or jaw. This was associated with nausea, vomiting and diaphoresis. The patient does not communicate so all information is coming from her . He states she was clutching her heart and abdomen intermittently throughout the day. He did administer her 3 SL nitro tablets however they didn't seem to help her discomfort. Imaging of her abdomen revealed moderate sized hiatal hernia, hypodensity within the head of the pancreas, possible neoplasm versus acute pancreatitis, large calcification of the right adnexal region and diverticulosis. Ultrasound of the abdomen revealed acute cholecystitis with dilated common bile duct, pericholecystic fluid, biliary sludge and color wall thickening. She is seen and examined laying flat in bed and appears in no acute distress. No signs to suggest she is uncomfortable or in pain. EKG on admission reveals sinus bradycardia heart rate of 50 to, LVH, no acute ST or T wave abnormalities noted. Chest x-ray reveals mild cardiomegaly, diffuse interstitial densities and possible mild pulmonary vascular congestion. Laboratory data reviewed, WBC on admission 18.4 repeat this morning 15, hemoglobin 12.6, platelets 228, sodium 141, potassium 3.7, creatinine 0.76, magnesium 2.1, first troponin was negative second was 0.073 and third with 0.103, proBNP 3870. Current cardiac medications include atorvastatin 80 mg daily, Lopressor 25 mg twice a day, enalapril 5 mg twice a day and aspirin 81 mg daily. Most recent echocardiogram obtained in the office revealed preserved LV systolic function. Heart catheterization in 2013 revealed RCA free of occlusive disease, circumflex free of occlusive disease, left main free of occlusive disease and LAD at that time had a 99% stenosis in its proximal and midportion. She underwent successful stent placement to the LAD at that time. Unable to obtain accurate review of systems secondary to mental status. Patient smiles and shakes her head no to all questions. Blood pressure 125/70 heart rate 54 afebrile maintaining oxygen saturation on room air GENERAL: This is a 83-year-old female in no apparent distress at the time of my examination. HEENT: Head is atraumatic, normocephalic. Pupils are equal, round. Sclerae anicteric. Conjunctivae are clear. Mucous membranes of the mouth are moist. Neck is supple. There is no jugular venous distention. No carotid bruit is heard. LUNGS: Clear to auscultation no wheezes, rales or rhonchi. No chest wall tenderness is noted on palpation or with deep breathing. HEART: Regular rate and rhythm with faint systolic ejection murmur at the left sternal border, no rubs or gallops. S1 and S2 heard. ABDOMEN: Soft, non-tender. Bowel sounds are heard. No organomegaly noted. EXTREMITIES: No evidence of peripheral edema and no calf tenderness noted. VASCULAR: Radial and dorsalis pedis pulses palpated, no evidence of clubbing. NEUROLOGIC: Patient is awake and alert, with confusion at baseline. ASSESSMENT Non-ST elevated myocardial infarction Acute cholecystitis Urinary tract infection Leukocytosis History of coronary artery disease s/p stent placement to the LAD 2013 Hypertension Dyslipidemia Dementia PLAN Initiate on heparin infusion and plavix. Obtain 2D echocardiogram and doppler study to assess cardiac structure and function. Given her advanced dementia as well as cholecystits and urinary tract infection our recommendation is medical therapy. This was discussed with her and he is in agreement. Continue aspirin, atorvastatin, enalapril and lopressor as previously ordered. Further recommendations to follow based on clinical course. Thank you kindly for this consultation. Nurse Practitioner note has been reviewed, I agree with a documented findings and plan of care. Patient was seen and examined. Past Medical History Past Medical History: Dementia, Hyperlipidemia, Hypertension, Osteoarthritis (OA), Thyroid Disorder Additional Past Medical History / Comment(s): ALZHEIMER'S History of Any Multi-Drug Resistant Organisms: None Reported Past Surgical History: Heart Catheterization With Stent, Tonsillectomy Additional Past Surgical History / Comment(s): cataract surgery, colonoscopy, Past Anesthesia/Blood Transfusion Reactions: No Reported Reaction Date of Last Stent Placement:: 2014 Past Psychological History: No Psychological Hx Reported Smoking Status: Never smoker Past Alcohol Use History: None Reported Past Drug Use History: None Reported - Past Family History Mother Family Medical History: Asthma Father Family Medical History: Deep Vein Thrombosis (DVT), Myocardial Infarction ([place]) Additional Family Medical History / Comment(s): at 59 Sister(s) Family Medical History: Cancer Additional Family Medical History / Comment(s): 2 SISTERS HAD CANCER Medications and Allergies Home Medications Medication Instructions Recorded Confirmed Type Donepezil [Aricept] 10 mg PO DAILY 07/10/14 07/10/19 History Levothyroxine Sodium [Synthroid] 25 mcg PO DAILY 07/10/14 07/10/19 History Atorvastatin [Lipitor] 80 mg PO HS #30 tab 07/17/14 07/10/19 Rx Enalapril [Vasotec] 5 mg PO BID #60 tab 07/17/14 07/10/19 Rx Metoprolol Tartrate [Lopressor] 25 mg PO BID #60 tab 07/17/14 07/10/19 Rx Nitroglycerin Sl Tabs [Nitrostat] 0.4 mg SUBLINGUAL Q5M PRN #25 tab 07/17/14 07/10/19 Rx Aspirin EC [Ecotrin Low Dose] 81 mg PO DAILY 11/07/16 07/10/19 History Cholecalciferol [Vitamin D3] 1,000 unit PO DAILY 11/07/16 07/10/19 History Diclofenac Sodium [Voltaren] 50 mg PO DAILY 11/07/16 07/10/19 History Memantine [Namenda] 10 mg PO BID 07/10/19 07/10/19 History Allergies Allergy/AdvReac Type Severity Reaction Status Date / Time Penicillins Allergy Unknown Verified 07/10/19 13:02 propoxyphene HCl Allergy Confusion Verified 07/10/19 13:02 [From [facility]] Physical Exam Vitals: Vital Signs Temp Pulse Pulse Resp BP BP BP 07/11/19 04:00 97.8 F 58 L 16 148/63 07/10/19 23:28 97.7 F 58 L 16 154/60 07/10/19 20:36 16 07/10/19 20:00 97.5 F L 56 L 16 155/60 07/10/19 18:10 97.9 F 54 L 17 165/76 07/10/19 16:44 46 L 18 161/69 07/10/19 15:00 17 07/10/19 14:08 45 L 18 150/72 08/28/19 12:30 97.9 F 54 L 22 118/92 Pulse Ox 07/11/19 04:00 95 07/10/19 23:28 96 07/10/19 20:36 07/10/19 20:00 96 07/10/19 18:10 99 07/10/19 16:44 97 07/10/19 15:00 07/10/19 14:08 99 07/10/19 12:30 95 Intake and Output 07/10/19 07/11/19 07/11/19 22:59 06:59 14:59 Intake Total 75 Balance 75 Intake: Intake, IV Titration 75 Amount Sodium Chloride 0.9% 1, 75 000 ml @ 75 mls/hr IV . [id number] ONE Rx#:[id number] Other: Voiding Method Incontinent # Voids 1 Results 07/11/19 05:59 07/11/19 05:59 Cardiac Enzymes 07/10/19 07/10/19 07/10/19 Range/Units 13:45 13:45 21:25 AST 24 (14-36) U/L Troponin I <0.012 0.073 H* (0.000-0.034) ng/mL 07/11/19 07/11/19 Range/Units 05:59 05:59 AST 22 (14-36) U/L Troponin I 0.103 H* (0.000-0.034) ng/mL Coagulation 07/10/19 Range/Units 13:45 PT 10.1 (9.0-12.0) sec APTT 21.5 L (22.0-30.0) sec CBC 07/10/19 07/11/19 Range/Units 13:45 05:59 WBC 18.4 H 15.0 H (3.8-10.6) k/uL RBC 4.89 4.74 (3.80-5.40) m/uL Hgb 13.1 12.6 (11.4-16.0) gm/dL Hct 40.9 39.8 (34.0-46.0) % Plt Count 258 228 (150-450) k/uL Comprehensive Metabolic Panel 07/10/19 07/11/19 Range/Units 13:45 05:59 Sodium 143 141 (137-145) mmol/L Potassium 5.3 H 3.7 (3.5-5.1) mmol/L Chloride 106 107 (98-107) mmol/L Carbon Dioxide 28 23 (22-30) mmol/L BUN 21 H 16 (7-17) mg/dL Creatinine 1.00 0.76 (0.52-1.04) mg/dL Glucose 157 H 106 H (74-99) mg/dL Calcium 9.2 8.5 (8.4-10.2) mg/dL AST 24 22 (14-36) U/L ALT 25 16 (9-52) U/L Alkaline Phosphatase 130 H 112 (38-126) U/L Total Protein 7.1 6.1 L (6.3-8.2) g/dL Albumin 4.3 3.6 (3.5-5.0) g/dL Current Medications Generic Name Dose Route Start Last Admin Trade Name Freq PRN Reason Stop Dose Admin Aspirin 81 mg 07/11/19 09:00 Aspirin PO DAILY [facility] Atorvastatin Calcium 80 mg 07/10/19 21:00 07/10/19 20:12 Lipitor PO Not Given HS [facility] Cholecalciferol 1,000 unit 07/11/19 09:00 Vitamin D3 (25 Mcg = 1000 Iu) PO DAILY [facility] Donepezil HCl 10 mg 07/11/19 09:00 Aricept PO DAILY [facility] Etodolac 200 mg 07/11/19 09:00 Lodine PO DAILY [facility] Levothyroxine Sodium 25 mcg 07/11/19 06:30 07/11/19 05:57 Synthroid PO 25 mcg DAILY@0630 [facility] Administration Lisinopril 10 mg 07/10/19 21:00 07/10/19 20:12 Zestril PO 10 mg BID [facility] Administration Memantine 10 mg 07/10/19 21:00 07/10/19 20:12 Namenda PO 10 mg BID [facility] Administration Metoprolol Tartrate 25 mg 07/10/19 21:00 07/10/19 22:59 Lopressor PO 25 mg BID [facility] Administration Nitroglycerin 0.4 mg 07/10/19 18:30 Nitrostat SUBLINGUAL Q5M PRN Chest Pain Intake and Output 07/10/19 07/11/19 07/11/19 22:59 06:59 14:59 Intake Total 75 Balance 75 Intake: Intake, IV Titration 75 Amount Sodium Chloride 0.9% 1, 75 000 ml @ 75 mls/hr IV . [id number] ONE Rx#:[id number] Other: Voiding Method Incontinent # Voids 1 07/11/19 05:59 07/11/19 05:59
[2019-07-11] MEDS ORDERED: CLOPIDOGREL 75 MG TAB PO SCH (10:45)
--- NOTE | 2019-07-11 11:38 | ECHOF ---
Referral Reason:cp MEASUREMENTS -------- HEIGHT: 132.1 cm WEIGHT: 59.0 kg BP: 125/70 RVIDd: 2.3 cm (< 3.3) IVSd: 1.0 cm (0.6 - 1.1) LVIDd: 3.8 cm (3.9 - 5.3) LVPWd: 0.9 cm (0.6 - 1.1) IVSs: 1.2 cm LVIDs: 2.6 cm LVPWs: 1.4 cm LA Diam: 3.3 cm (2.7 - 3.8) LAESV Index (A-L): 24.70 ml/m Ao Diam: 2.8 cm (2.0 - 3.7) AV Cusp: 1.4 cm (1.5 - 2.6) LA Diam: 2.9 cm (2.7 - 3.8) MV EXCURSION: 14.664 mm (> 18.000) MV EF SLOPE: 52 mm/s (70 - 150) EPSS: 0.3 cm MV E Elmer: 0.49 m/s MV DecT: 221 ms MV A Elmer: 0.67 m/s MV E/A Ratio: 0.73 RAP: 5.00 mmHg RVSP: 31.05 mmHg FINDINGS -------- Sinus rhythm. This was a technically good study. LV size, wall thickness and systolic function are normal, with an EF greater than 55%. The left uma tricular size is normal. The right ventricle is normal in size. The left atrial size is normal. The right atrial size is normal. The aortic valve is trileaflet, and appears structurally normal. No aortic stenosis or regurgitation. Mild mitral regurgitation is present. Mild tricuspid regurgitation present. There is no evidence of pulmonary hypertension. The right v entricular systolic pressure, as measured by Doppler, is 31.05mmHg. There is no pulmonic regurgitation present. The aortic root size is normal. There is no pericardial effusion. CONCLUSIONS -------- 1. Sinus rhythm. 2. This was a technically good study. 3. LV size, wall thickness and systolic function are normal, with an EF greater than 55%. 4. The left ventricular size is normal. 5. The right ventricle is normal in size. 6. The left atrial size is normal. 7. The right atrial size is normal. 8. The aortic valve is trileaflet, and appears structurally normal. No aortic stenosis or regurgitati on. 9. Mild mitral regurgitation is present. 10. Mild tricuspid regurgitation present. 11. There is no evidence of pulmonary hypertension. 12. The right ventricular systolic pressure, as measured by Doppler, is 31.05mmHg. 13. There is no pulmonic regurgitation present. 14. The aortic root size is normal. 15. There is no pericardial effusion. REFRIGERATION SERVICE TECHNICIAN: Andree Orozco RDCS
[2019-07-11 12:00] LABS: Glucose,Whole Blood 133 mg/dL (75-99)
[2019-07-11] MEDS: CHOLECALCIFEROL 1,000 UNIT TAB PO SCH (12:07)
[2019-07-11] MEDS: ASPIRIN 81 MG PO SCH (12:07)
[2019-07-11] MEDS: MEMANTINE 10 MG TAB PO SCH ×2 (12:07→21:02)
[2019-07-11] MEDS: DONEPEZIL 10 MG TAB PO SCH (12:07)
[2019-07-11] MEDS: METOPROLOL TARTRATE 25 MG TAB PO SCH ×2 (12:07→21:02)
[2019-07-11] MEDS: LISINOPRIL 10 MG TAB PO SCH ×2 (12:07→21:01)
[2019-07-11] MEDS: ETODOLAC 200 MG CAPSULE PO SCH (12:07)
--- NOTE | 2019-07-11 17:44 | P.PN ---
Subjective Progress Note Date: 07/11/19 This is an 83-year-old female admitted with non-STEMI, acute cholecystitis, possible acute UTI, final urine culture pending and multiple other medical issues. Troponins less than 0.012, 0.073, 0.103. Echo reported normal LV function, EF greater than 55% . Evaluated by cardiology, medical management recommended. Patient currently on heparin drip. CT reported ill-defined hypodensity within the anterior head of the pancreas measuring 3.5 x 1.2 cm, possible neoplasm, possible pancreatitis (though lipase only a 68)., Diverticulosis, nonspecific right adnexal large calcification -no specific, moderate size hiatal hernia, Abdominal ultrasound reporting acute cholecystitis with dilated common bile duct, pericholecystic fluid, biliary sludge and gallbladder wall thickening, visualization of pancreas suboptimal, limited evaluation of kidneys liver aorta with left renal cyst. Evaluated by surgery, H CHIKIS scan ordered. Possible UTI with urine culture pending. Afebrile, WBC trending down, 15. Denies chest pain, palpitations or shortness of breath. Denies abdominal pain. Telemetry sinus bradycardia. Objective - Vital Signs Vital signs: Vital Signs Temp 98.2 F 07/11/19 16:00 Pulse 53 L 07/11/19 16:00 Resp 17 07/11/19 16:41 BP 118/79 07/11/19 16:00 Pulse Ox 96 07/11/19 16:00 Intake & Output 07/10/19 07/11/19 07/11/19 18:59 06:59 18:59 Intake Total 75 54.839 Balance 75 54.839 Weight 58.967 kg Intake: Intake, IV Titration 75 54.839 Amount Heparin Sod,Pork in 0.45% 54.839 NaCl 25,000 unit In 0.45 % NaCl 1 250ml.bag @ 12 UNITS/KG/HR 7.076 mls/hr IV .Q24H [facility] Rx#: [id number] Sodium Chloride 0.9% 1, 75 000 ml @ 75 mls/hr IV . [id number] Rx#:[id number] Other: Voiding Method Incontinent Diaper Incontinent # Voids 1 2 - Exam PHYSICAL EXAM: VITAL SIGNS: As above GENERAL: Lying in bed, no acute distress, HEENT: Conjunctivae normal. eyes normal. NECK: No JVD. No thyroid enlargement. No LNs CARDIOVASCULAR: S1, S2 regular.systolic murmur RESPIRATION: Breath sounds diminished in the bases. No rhonchi or crackles. No bronchial breathing. ABDOMEN: Soft, nontender . No guarding. no masses palpable. No ascites, No hepatosplenomegaly.Bowel sounds heard. LEGS: No edema. no swelling. No calf tenderness. PSYCHIATRY: Alert and oriented X1-2, mood and affect normal. NERVOUS SYSTEM: Cranial N 2-12 grossly normal. Moves all 4 limbs. Diffuse weakness, No focal deficits. Strength and sensation grossly intact.. Skin: no lesions, no rash - Labs CBC & Chem 7: 07/11/19 05:59 07/11/19 05:59 Labs: Abnormal Lab Results - Last 24 Hours (Table) 07/10/19 07/10/19 07/11/19 Range/Units 20:25 21:25 05:59 WBC 15.0 H (3.8-10.6) k/uL RDW 15.7 H (11.5-15.5) % Neutrophils # 11.6 H (1.3-7.7) k/uL APTT (22.0-30.0) sec Glucose (74-99) mg/dL POC Glucose (mg/dL) 129 H (75-99) mg/dL Troponin I 0.073 H* (0.000-0.034) ng/mL Total Protein (6.3-8.2) g/dL Urine Appearance (Clear) Urine Nitrite (Negative) Ur Leukocyte Esterase (Negative) Urine RBC (0-5) /hpf Urine WBC (0-5) /hpf Ur Squamous Epith Cells (0-4) /hpf Urine Bacteria (None) /hpf Urine Mucus (None) /hpf 07/11/19 07/11/19 07/11/19 Range/Units 05:59 05:59 06:46 WBC (3.8-10.6) k/uL RDW (11.5-15.5) % Neutrophils # (1.3-7.7) k/uL APTT (22.0-30.0) sec Glucose 106 H (74-99) mg/dL POC Glucose (mg/dL) 104 H (75-99) mg/dL Troponin I 0.103 H* (0.000-0.034) ng/mL Total Protein 6.1 L (6.3-8.2) g/dL Urine Appearance (Clear) Urine Nitrite (Negative) Ur Leukocyte Esterase (Negative) Urine RBC (0-5) /hpf Urine WBC (0-5) /hpf Ur Squamous Epith Cells (0-4) /hpf Urine Bacteria (None) /hpf Urine Mucus (None) /hpf 07/11/19 07/11/19 07/11/19 Range/Units 08:55 11:57 14:50 WBC (3.8-10.6) k/uL RDW (11.5-15.5) % Neutrophils # (1.3-7.7) k/uL APTT 106.1 H* (22.0-30.0) sec Glucose (74-99) mg/dL POC Glucose (mg/dL) 133 H (75-99) mg/dL Troponin I (0.000-0.034) ng/mL Total Protein (6.3-8.2) g/dL Urine Appearance Cloudy H (Clear) Urine Nitrite Positive H (Negative) Ur Leukocyte Esterase Moderate H (Negative) Urine RBC 6 H (0-5) /hpf Urine WBC 15 H (0-5) /hpf Ur Squamous Epith Cells 12 H (0-4) /hpf Urine Bacteria Many H (None) /hpf Urine Mucus Rare H (None) /hpf Microbiology - Last 24 Hours (Table) 07/11/19 08:55 Urine Culture - Preliminary Urine,Voided Assessment and Plan Assessment: Active non-STEMI -Acute cholecystitis -Leukocytosis secondary to the above -Possible acute UTI, urine screen pending, asymptomatic -Possible pancreatic head neoplasm, MR of the abdomen ordered -CAD with history of stent -Hypertension -Alzheimer's dementia -Diabetes mellitus -Dyslipidemia Plan: Continue on current medication regime ,monitoring and symptomatic treatment. Maintained on statin, aspirin, ASHLEY inhibitor and beta marco a. Discussed patient potentially may need cholecystectomy with Dr. Lange; heparin drip and Plavix discontinued, placed on heparin subcu. If HIDA scan indicative of acute cholecystitis, patient has been cleared for surgery by cardiology. MRI of abdomen ordered regarding potential pancreatic neoplasm/mass. Further recommendations to follow. The impression and plan of care has been dictated as directed. : I performed a history and examination of this patient, discussed the same with the dictator. I agree with the dictator's note ,documented as a scribe. Any additional findings or plans will be noted.
--- NOTE | 2019-07-11 18:10 | P.GSCN ---
History of Present Illness Consult date: 07/11/19 History of present illness: Patient seen and evaluated. Patient presented with acute chest pain placed on Plavix and aspirin including heparin drip. Ultrasound consistent with cholecystitis. With recent cardiac event, conservative management described. Recommend HIDA scan. If HIDA scan positive, cholecystotomy tube and give informed. We'll need at least 5 days off Plavix prior to surgical intervention if needed. Surgical options described with the patient and family. Past Medical History Past Medical History: Dementia, Hyperlipidemia, Hypertension, Osteoarthritis (OA), Thyroid Disorder Additional Past Medical History / Comment(s): ALZHEIMER'S History of Any Multi-Drug Resistant Organisms: None Reported Past Surgical History: Heart Catheterization With Stent, Tonsillectomy Additional Past Surgical History / Comment(s): cataract surgery, colonoscopy, Past Anesthesia/Blood Transfusion Reactions: No Reported Reaction Date of Last Stent Placement:: 2014 Past Psychological History: No Psychological Hx Reported Smoking Status: Never smoker Past Alcohol Use History: None Reported Past Drug Use History: None Reported - Past Family History Mother Family Medical History: Asthma Father Family Medical History: Deep Vein Thrombosis (DVT), Myocardial Infarction (PR) Additional Family Medical History / Comment(s): at 59 Sister(s) Family Medical History: Cancer Additional Family Medical History / Comment(s): 2 SISTERS HAD CANCER Medications and Allergies Home Medications Medication Instructions Recorded Confirmed Type Donepezil [Aricept] 10 mg PO DAILY 07/10/14 07/10/19 History Levothyroxine Sodium [Synthroid] 25 mcg PO DAILY 07/10/14 07/10/19 History Atorvastatin [Lipitor] 80 mg PO HS #30 tab 07/17/14 07/10/19 Rx Enalapril [Vasotec] 5 mg PO BID #60 tab 07/17/14 07/10/19 Rx Metoprolol Tartrate [Lopressor] 25 mg PO BID #60 tab 07/17/14 07/10/19 Rx Nitroglycerin Sl Tabs [Nitrostat] 0.4 mg SUBLINGUAL Q5M PRN #25 tab 07/17/14 07/10/19 Rx Aspirin EC [Ecotrin Low Dose] 81 mg PO DAILY 11/07/16 07/10/19 History Cholecalciferol [Vitamin D3] 1,000 unit PO DAILY 11/07/16 07/10/19 History Diclofenac Sodium [Voltaren] 50 mg PO DAILY 11/07/16 07/10/19 History Memantine [Namenda] 10 mg PO BID 07/10/19 07/10/19 History Allergies Allergy/AdvReac Type Severity Reaction Status Date / Time Penicillins Allergy Unknown Verified 07/10/19 13:02 propoxyphene HCl Allergy Confusion Verified 07/10/19 13:02 [From Darvon] Surgical - Exam Vital Signs Temp Pulse Resp BP Pulse Ox 97.9 F 54 L 22 118/92 95 07/10/19 12:30 07/10/19 12:30 07/10/19 12:30 07/10/19 12:30 07/10/19 12:30 Results - Labs 07/11/19 05:59 07/11/19 05:59 Abnormal Lab Results - Last 24 Hours (Table) 07/10/19 07/10/19 07/10/19 Range/Units 13:45 13:45 13:45 WBC 18.4 H (3.8-10.6) k/uL RDW 16.1 H (11.5-15.5) % Neutrophils # 15.6 H (1.3-7.7) k/uL APTT 21.5 L (22.0-30.0) sec Potassium 5.3 H (3.5-5.1) mmol/L BUN 21 H (7-17) mg/dL Glucose 157 H (74-99) mg/dL POC Glucose (mg/dL) (75-99) mg/dL Alkaline Phosphatase 130 H (38-126) U/L Troponin I (0.000-0.034) ng/mL Total Protein (6.3-8.2) g/dL Urine Appearance (Clear) Urine Nitrite (Negative) Ur Leukocyte Esterase (Negative) Urine RBC (0-5) /hpf Urine WBC (0-5) /hpf Ur Squamous Epith Cells (0-4) /hpf Urine Bacteria (None) /hpf Urine Mucus (None) /hpf 07/10/19 07/10/19 07/11/19 Range/Units 20:25 21:25 05:59 WBC 15.0 H (3.8-10.6) k/uL RDW 15.7 H (11.5-15.5) % Neutrophils # 11.6 H (1.3-7.7) k/uL APTT (22.0-30.0) sec Potassium (3.5-5.1) mmol/L BUN (7-17) mg/dL Glucose (74-99) mg/dL POC Glucose (mg/dL) 129 H (75-99) mg/dL Alkaline Phosphatase (38-126) U/L Troponin I 0.073 H* (0.000-0.034) ng/mL Total Protein (6.3-8.2) g/dL Urine Appearance (Clear) Urine Nitrite (Negative) Ur Leukocyte Esterase (Negative) Urine RBC (0-5) /hpf Urine WBC (0-5) /hpf Ur Squamous Epith Cells (0-4) /hpf Urine Bacteria (None) /hpf Urine Mucus (None) /hpf 07/11/19 07/11/19 07/11/19 Range/Units 05:59 05:59 06:46 WBC (3.8-10.6) k/uL RDW (11.5-15.5) % Neutrophils # (1.3-7.7) k/uL APTT (22.0-30.0) sec Potassium (3.5-5.1) mmol/L BUN (7-17) mg/dL Glucose 106 H (74-99) mg/dL POC Glucose (mg/dL) 104 H (75-99) mg/dL Alkaline Phosphatase (38-126) U/L Troponin I 0.103 H* (0.000-0.034) ng/mL Total Protein 6.1 L (6.3-8.2) g/dL Urine Appearance (Clear) Urine Nitrite (Negative) Ur Leukocyte Esterase (Negative) Urine RBC (0-5) /hpf Urine WBC (0-5) /hpf Ur Squamous Epith Cells (0-4) /hpf Urine Bacteria (None) /hpf Urine Mucus (None) /hpf 07/11/19 07/11/19 Range/Units 08:55 11:57 WBC (3.8-10.6) k/uL RDW (11.5-15.5) % Neutrophils # (1.3-7.7) k/uL APTT (22.0-30.0) sec Potassium (3.5-5.1) mmol/L BUN (7-17) mg/dL Glucose (74-99) mg/dL POC Glucose (mg/dL) 133 H (75-99) mg/dL Alkaline Phosphatase (38-126) U/L Troponin I (0.000-0.034) ng/mL Total Protein (6.3-8.2) g/dL Urine Appearance Cloudy H (Clear) Urine Nitrite Positive H (Negative) Ur Leukocyte Esterase Moderate H (Negative) Urine RBC 6 H (0-5) /hpf Urine WBC 15 H (0-5) /hpf Ur Squamous Epith Cells 12 H (0-4) /hpf Urine Bacteria Many H (None) /hpf Urine Mucus Rare H (None) /hpf Diabetes panel 07/10/19 07/11/19 Range/Units 13:45 05:59 Sodium 143 141 (137-145) mmol/L Potassium 5.3 H 3.7 (3.5-5.1) mmol/L Chloride 106 107 (98-107) mmol/L Carbon Dioxide 28 23 (22-30) mmol/L BUN 21 H 16 (7-17) mg/dL Creatinine 1.00 0.76 (0.52-1.04) mg/dL Glucose 157 H 106 H (74-99) mg/dL Calcium 9.2 8.5 (8.4-10.2) mg/dL AST 24 22 (14-36) U/L ALT 25 16 (9-52) U/L Alkaline Phosphatase 130 H 112 (38-126) U/L Total Protein 7.1 6.1 L (6.3-8.2) g/dL Albumin 4.3 3.6 (3.5-5.0) g/dL Calcium panel 07/10/19 07/11/19 Range/Units 13:45 05:59 Calcium 9.2 8.5 (8.4-10.2) mg/dL Albumin 4.3 3.6 (3.5-5.0) g/dL Pituitary panel 07/10/19 07/11/19 Range/Units 13:45 05:59 Sodium 143 141 (137-145) mmol/L Potassium 5.3 H 3.7 (3.5-5.1) mmol/L Chloride 106 107 (98-107) mmol/L Carbon Dioxide 28 23 (22-30) mmol/L BUN 21 H 16 (7-17) mg/dL Creatinine 1.00 0.76 (0.52-1.04) mg/dL Glucose 157 H 106 H (74-99) mg/dL Calcium 9.2 8.5 (8.4-10.2) mg/dL Adrenal panel 07/10/19 07/11/19 Range/Units 13:45 05:59 Sodium 143 141 (137-145) mmol/L Potassium 5.3 H 3.7 (3.5-5.1) mmol/L Chloride 106 107 (98-107) mmol/L Carbon Dioxide 28 23 (22-30) mmol/L BUN 21 H 16 (7-17) mg/dL Creatinine 1.00 0.76 (0.52-1.04) mg/dL Glucose 157 H 106 H (74-99) mg/dL Calcium 9.2 8.5 (8.4-10.2) mg/dL Total Bilirubin 0.5 0.6 (0.2-1.3) mg/dL AST 24 22 (14-36) U/L ALT 25 16 (9-52) U/L Alkaline Phosphatase 130 H 112 (38-126) U/L Total Protein 7.1 6.1 L (6.3-8.2) g/dL Albumin 4.3 3.6 (3.5-5.0) g/dL
--- NOTE | 2019-07-11 19:49 | NM ---
EXAMINATION TYPE: NM hepatobiliary wo EF DATE OF EXAM: 07/11/2019 COMPARISON: NONE HISTORY: Cholecystitis. Pain TECHNIQUE: After the intravenous administration of 5.3 mCi Tc 99m Mebrofenin hepatobiliary scintigrap hy is performed. Immediate images post injection. FINDINGS: There is prompt uptake of the tracer by the liver that has normal size and contour. There is no focal liver defect. There is tracer in the small bowel at 16 minutes which excludes obstruction of the com mon bile duct. Images were obtained up to 3 hours that show no evidence of any tracer accumulation in the gallbladder. IMPRESSION: There is nonvisualization of the gallbladder consistent with acute cholecystitis and cyst ic duct obstruction. No evidence of obstruction of the common bile duct.
[2019-07-11] MEDS: ATORVASTATIN 80 MG TAB PO SCH (21:01)
[2019-07-11] MEDS: HEPARIN SODIUM,PORCINE 5,000 UNIT/ML 1 ML VIAL SQ SCH (21:02)
[2019-07-11] MEDS: CLINDAMYCIN 600 MG in DEXTROSE 5% IN WATER 50 ML IVPB SCH ×2 (23:59)
[2019-07-12] MEDS: LEVOTHYROXINE 25 MCG TAB PO SCH (06:15)
[2019-07-12 07:18] LABS: Anisocytosis Slight; Basophils % (A) 0 %; Eosinophils # (A) 0.2 k/uL (0-0.7); Eosinophils % (A) 2 %; HCT 34.7 % (34.0-46.0); HGB 11.2 gm/dL (11.4-16.0); Lymphocytes % (A) 18 %; MCH 26.6 pg (25.0-35.0); MCHC 32.4 g/dL (31.0-37.0); MCV 82.1 fL (80.0-100.0); Mean Platelet Volume 7.7; Monocytes # (A) 0.6 k/uL (0-1.0); Monocytes % (A) 6 %; Neutrophils # (A) 8.4 k/uL (1.3-7.7); Neutrophils % (A) 74 %; Platelet Count 220 k/uL (150-450); RBC 4.23 m/uL (3.80-5.40); WBC 11.3 k/uL (3.8-10.6)
[2019-07-12] MEDS: METOPROLOL TARTRATE 25 MG TAB PO SCH ×2 (09:04→21:50)
[2019-07-12] MEDS: HEPARIN SODIUM,PORCINE 5,000 UNIT/ML 1 ML VIAL SQ SCH ×2 (09:04→21:48)
[2019-07-12] MEDS: ASPIRIN 81 MG PO SCH (09:05)
[2019-07-12] MEDS: DONEPEZIL 10 MG TAB PO SCH (09:05)
[2019-07-12] MEDS: LISINOPRIL 10 MG TAB PO SCH ×2 (09:05→21:48)
[2019-07-12] MEDS: CHOLECALCIFEROL 1,000 UNIT TAB PO SCH (09:05)
[2019-07-12] MEDS: ETODOLAC 200 MG CAPSULE PO SCH (09:05)
[2019-07-12] MEDS: MEMANTINE 10 MG TAB PO SCH ×2 (09:05→21:48)
[2019-07-12] MEDS: CLINDAMYCIN 600 MG in DEXTROSE 5% IN WATER 50 ML IVPB SCH ×2 (09:38)
--- NOTE | 2019-07-12 10:18 | P.PN ---
Subjective Progress Note Date: 07/12/19 CHIEF COMPLAINT: Acute cholecystitis HISTORY OF PRESENT ILLNESS: The patient is an 83-year-old female who has severe dementia. Her is at bedside. She initially presented with poor appetite and non-STEMI. She denies any abdominal pain. I had the opportunity to speak with her son over the phone who is also a family physician in [facility]. I disclosed to him that her HIDA scan is positive for acute cholecystitis. On exam she denies any abdominal pain however. This may reflect the severity of her dementia. Her WBC count is improving on combination of Ancef, Flagyl, and Clindamycin for penicillin allergy. No fevers or chills since admission. She is still on a heparin drip for a mild myocardial infarction. She has also been cleared by cardiology to proceed with cholecystectomy. She recently was on Plavix less than 24 hours ago as well as heparin gtt, where surgical intervention is now delayed at least 5 days to decrease risk for bleeding. ROS: No reports of nausea and vomiting. No fevers or chills. No new chest pain. No productive sputum PHYSICAL EXAM: VITAL SIGNS: Reviewed CONSTITUTIONAL: Well developed and in no acute distress. EYES: Conjuctivae without sclera icterus. Extraocular movements grossly intact. HEAD, EARS, NOSE, THROAT: Moist buccal mucosa. Head is atraumatic, normocephalic. Hears conversational speech. No nasal drainage. NECK: Supple. No thyroidomegaly. RESPIRATORY: Non-labored respirations and equal bilateral excursions. CARDIOVASCULAR: Palpable 2+ radial pulses. ABDOMEN: Soft. No peritonitis. Non-distended MUSCULOSKELETAL: No gross deformity of the lower extremities noted. No clubbing. No cyanosis. SKIN: Good skin turgor. Well perfused. NEUROLOGIC: Cranial nerves I through XII grossly intact. No focal or lateralizi ng signs. PSYCH: Flat affect. Alert to person only. CLINCAL LABS: White blood cell count improved from 15,000 to 11,300. LFTs are normal STUDIES: I personally reviewed her HIDA scan with visualization only of the small bowel, no enhancement of the gallbladder REPORT: ASSESSMENT: 1. Acute hydrops cholecystitis PLAN: 1. I reviewed with both the patient's including her son that she is high perioperative risk without continued antibiotics. 2. In the interim, patient and family wanted to be discharged home. 3. I reviewed with them that she is extremely high risk for perforation especially without antibiotics. I spoke to admitting team for arrangements including infectious disease consultation, PICC line if needed for IV antibiotics. 4. Patient may need antibiotic IV infusion including PICC line for the next several days should she be discharged. Infectious disease consultation for daily dose antibiotic also been requested. Otherwise if home infusion antibiotic therapy not available, recommend continued hospitalization until earliest surgical intervention for July 16. Please discontinue medications that increase risk including all NSAIDs, Plavix, Eliquis equivalent medications in the meantime to decrease risk for bleeding for surgery. She recently was on Plavix less than 24 hours ago as well as heparin where surgical intervention is now delayed at least 5 days to decrease risk for bleeding. Critical care time over 32 minutes including coordination of care, discussion with consultants, review of results and plan Objective - Vital Signs Vital signs: Vital Signs Temp 98.2 F 07/12/19 07:40 Pulse 63 07/12/19 07:40 Resp 18 07/12/19 07:40 BP 99/67 07/12/19 07:40 Pulse Ox 95 07/12/19 07:40 Intake & Output 07/11/19 07/12/19 07/12/19 18:59 06:59 18:59 Intake Total 54.839 50 100 Balance 54.839 50 100 Intake: Intake, IV Titration 54.839 50 Amount Clindamycin 600 mg In 50 Dextrose 5% in Water 50 ml @ 50 mls/hr IVPB Q8HR [facility] Rx#:[id number] Heparin Sod,Pork in 0.45% 54.839 NaCl 25,000 unit In 0.45 % NaCl 1 250ml.bag @ 12 UNITS/KG/HR 7.076 mls/hr IV .Q24H [facility] Rx#: [id number] Other 100 Other: Voiding Method Diaper Diaper Incontinent Incontinent # Voids 2 1 1 # Bowel Movements 1 - Labs CBC & Chem 7: 07/12/19 06:36 07/11/19 05:59 Labs: Abnormal Lab Results - Last 24 Hours (Table) 07/11/19 07/11/19 07/12/19 Range/Units 11:57 14:50 06:36 WBC 11.3 H (3.8-10.6) k/uL Hgb 11.2 L (11.4-16.0) gm/dL RDW 16.0 H (11.5-15.5) % Neutrophils # 8.4 H (1.3-7.7) k/uL APTT 106.1 H* (22.0-30.0) sec POC Glucose (mg/dL) 133 H (75-99) mg/dL Microbiology - Last 24 Hours (Table) 07/11/19 08:55 Urine Culture - Preliminary Urine,Voided
[2019-07-12 10:57] LABS: Prothrombin Time 10.6 sec (9.0-12.0)
--- NOTE | 2019-07-12 10:59 | PN ---
PROGRESS NOTE Marleny is an 83-year-old lady was admitted to hospital with epigastric chest pain had mild troponin elevation and has also possible cholecystitis. Patient has known CAD and had prior angioplasty. Given the patient's advanced dementia and family pressures, we opted to treat her CAD with medical therapy. She is doing well and has not had any further symptoms since admission. She was discharged home and will undergo cholecystectomy in the outpatient setting. She will go home on Lopressor, Lipitor, and aspirin. Plavix is on hold because of surgery that needs to be done soon. PHYSICAL EXAM: Patient Is comfortable at rest. Vital signs are stable. There is no jugular venous distention. Chest exam reveals good air entry bilaterally. Heart exam reveals first and second heart sounds. Has an ejection systolic murmur in the aortic area. Abdomen is soft. Exam of extremities did not reveal any edema. LABS: Shows a hemoglobin of 11.2. ASSESSMENT: 1. Non ST-segment elevation MN. 2. Acute cholecystitis. PLAN: Patient will continue medical therapy. He is stable for discharge and is stable for surgery on Monday at this time. MMODL / IJN: [id number] /
--- NOTE | 2019-07-12 11:24 | MR ---
EXAMINATION TYPE: MR abdomen wo/w con DATE OF EXAM: 07/12/2019 COMPARISON: Ultrasound dated 07/11/2019, CT scan 07/10/2019 HISTORY: pancreatic mass protocol CONTRAST: Standard multiplanar, multisequence MRI departmental protocol utilizing 6 mL intravenous Gadavist delma olinium contrast. FINDINGS: Exam limited by motion artifact. There is no evidence of pancreatic mass. There is gallbladder hydrops, gallbladder wall thickening, gallbladder sludge and pericholecystic flu id correlate for acute cholecystitis. Additionally is a questionable defect within the distal CBD whi ch may represent a distal CBD stone. The seen T2 axial image 19. Mucosal lesion not excluded. ERCP re commended. Adrenal glands have a normal morphology. Spleen is homogeneous in signal. Simple appearing left renal cyst noted. No hydronephrosis. Aorta of normal caliber. Heart is enlarged. Subsegmental atelectasis noted both lung bases and there is a hiatal hernia. There appears to be a localized soft tissue area measuring 5 mm of abnormal signal within the spinal canal on image 7 T2 axial the proximal level of L3-L4. Multilevel degenerative disc disease and facet arthropathy noted and there is slight left lateral displacement of the thecal sac at the L4-L5 level . Changes of diverticulosis of the colon noted. No definite pathologic adenopathy. Vertebral body heman giomas are noted. Liver homogeneous in signal. Correlate for hepatic steatosis. Paraspinal soft tissu e muscular atrophy incidentally noted IMPRESSION: 1. Gallbladder hydrops with gallbladder sludge, wall thickening and pericholecystic fluid and a patte rn compatible with cholecystitis. A distal CBD stone or sludge is not excluded as noted on T2 axial i mage 19. 2. There is a suspicion for disc herniation at the T10-T11 level encroaching upon the spinal cord. Additionally, MR lumbar spine with contrast recommended for a localized area of abnormal signal centr ally within the spinal canal at the presumed level L3-L4. This could be artifactual but may represent a small extruded disc fragment or intrathecal neoplasm.
[2019-07-12] MEDS ORDERED: metroNIDAZOLE-NS PMX 500 MG in SALINE 1 100ML.BAG IVPB SCH (12:00)
[2019-07-12] MEDS ORDERED: CLINDAMYCIN 150 MG CAP PO SCH (16:00)
--- NOTE | 2019-07-12 16:33 | P.PN ---
Subjective Progress Note Date: 07/12/19 This is an 83-year-old female admitted with non-STEMI, acute cholecystitis, possible acute UTI, final urine culture pending and multiple other medical issues. Troponins less than 0.012, 0.073, 0.103. Echo reported normal LV function, EF greater than 55% . Evaluated by cardiology, medical management recommended. Patient currently on heparin drip. CT reported ill-defined hypodensity within the anterior head of the pancreas measuring 3.5 x 1.2 cm, possible neoplasm, possible pancreatitis (though lipase only a 68)., Diverticulosis, nonspecific right adnexal large calcification -no specific, moderate size hiatal hernia, Abdominal ultrasound reporting acute cholecystitis with dilated common bile duct, pericholecystic fluid, biliary sludge and gallbladder wall thickening, visualization of pancreas suboptimal, limited evaluation of kidneys liver aorta with left renal cyst. Evaluated by surgery, H CHIKIS scan ordered. Possible UTI with urine culture pending. Afebrile, WBC trending down, 15. Denies chest pain, palpitations or shortness of breath. Denies abdominal pain. Telemetry sinus bradycardia. 07/12/2019 HIDA scan consistent with acute cholecystitis and cystic duct obstruction. Abdomen MR reporting no evidence of pancreatic mass ,gallbladder hydrops, gallbladder sludge, thickening empiric cholecystic fluid compatible with cholecystitis, changes of diverticulosis of the colon noted with no definite pathological adenopathy, vertebral body hemangiomas, possible hepatic steatosis, paraspinal soft tissue muscular atrophy incidentally noted, possible disc herniation at T10-T11 encroaching upon spinal cord, abnormal signal centrall within spinal canal at presumed level L3-L4 possible small extruded disc fragment or intrathecal neoplasm. Urine culture reporting gram-negative bacilli .Maintained on IV Rocephin.Afebrile, vital signs stable. Denies abdominal pain. Denies chest pain, palpitations or shortness of breath. Objective - Vital Signs Vital signs: Vital Signs Temp 97.7 F 07/12/19 14:38 Pulse 60 07/12/19 14:38 Resp 15 07/12/19 14:38 BP 101/49 07/12/19 14:38 Pulse Ox 96 07/12/19 14:38 Intake & Output 07/11/19 07/12/19 07/12/19 18:59 06:59 18:59 Intake Total 54.839 50 720 Balance 54.839 50 720 Intake: Intake, IV Titration 54.839 50 Amount Clindamycin 600 mg In 50 Dextrose 5% in Water 50 ml @ 50 mls/hr IVPB Q8HR [facility] Rx#:[id number] Heparin Sod,Pork in 0.45% 54.839 NaCl 25,000 unit In 0.45 % NaCl 1 250ml.bag @ 12 UNITS/KG/HR 7.076 mls/hr IV .Q24H [facility] Rx#: [id number] Oral 620 Other 100 Other: Voiding Method Diaper Diaper Diaper Incontinent Incontinent Incontinent # Voids 2 1 1 # Bowel Movements 1 - Exam PHYSICAL EXAM: VITAL SIGNS: As above GENERAL: Lying in bed, no acute distress, HEENT: Conjunctivae normal. eyes normal. NECK: No JVD. No thyroid enlargement. No LNs CARDIOVASCULAR: S1, S2 regular.systolic murmur RESPIRATION: Breath sounds diminished in the bases. No rhonchi or crackles. No wheezing. ABDOMEN: Soft, nontender . No guarding. no masses palpable. Positive Bowel sounds. LEGS: No edema. no swelling. No calf tenderness. PSYCHIATRY: Alert and oriented X 2, mood and affect calm, cooperative. NERVOUS SYSTEM: Cranial N 2-12 grossly normal. Moves all 4 limbs. Diffuse weakness, No focal deficits. Strength and sensation grossly intact.. Skin: no lesions, no rash - Labs CBC & Chem 7: 07/12/19 06:36 07/11/19 05:59 Labs: Abnormal Lab Results - Last 24 Hours (Table) 07/12/19 Range/Units 06:36 WBC 11.3 H (3.8-10.6) k/uL Hgb 11.2 L (11.4-16.0) gm/dL RDW 16.0 H (11.5-15.5) % Neutrophils # 8.4 H (1.3-7.7) k/uL Microbiology - Last 24 Hours (Table) 07/11/19 08:55 Urine Culture - Preliminary Urine,Voided Gram Neg Bacilli Assessment and Plan Assessment: Active non-STEMI -Acute cholecystitis -Leukocytosis secondary to the above -Acute UTI, gram-negative bacilli -Possible pancreatic head neoplasm, MR of the abdomen reported no evidence of pancreatic mass -CAD with history of stent -Hypertension -Alzheimer's dementia -Diabetes mellitus -Dyslipidemia -Atelectasis -possible disc herniation at T10-T11 encroaching upon spinal cord, abnormal signal centrall within spinal canal at presumed level L3-L4 possible small extruded disc fragment or intrathecal neoplasm per MR -paraspinal soft tissue muscular atrophy incidentally noted on MR -Diverticulosis changes, further follow-up with GI outpatient -Possible hepatic steatosis Plan: Continue on current medication regime ,monitoring and symptomatic treatment. Infectious disease consulted. Maintain IV antibiotics of Rocephin .final urine culture pending .Cholecystectomy is planned for Monday. Maintained on statin, aspirin, ASHLEY inhibitor and beta marco a. DVT prophylaxis with heparin subcu as per cardiology. GI prophylaxis in place. Patient and spouse updated on plan of care, both verbalize understanding of and agreement wi . Further recommendations to follow. The impression and plan of care has been dictated as directed. : I performed a history and examination of this patient, discussed the same with the dictator. I agree with the dictator's note ,documented as a scribe. Any additional findings or plans will be noted.
[2019-07-12] MEDS: PANTOPRAZOLE 40 MG/10 ML VIAL IVP SCH (17:44)
[2019-07-12] MEDS: metroNIDAZOLE 500 MG TAB PO SCH (17:44)
[2019-07-12] MEDS: ATORVASTATIN 80 MG TAB PO SCH (21:48)
[2019-07-13] MEDS: metroNIDAZOLE 500 MG TAB PO SCH ×4 (00:22→18:26)
--- NOTE | 2019-07-13 01:27 | P.CONS ---
History of Present Illness - Reason for Consult Consult date: 07/12/19 acute cholecystitis and antibiotic recommendation Requesting physician: Prince Chatman - Chief Complaint chest pain and vomiting 1 day - History of Present Illness patient is 83-year-old female with a past medical history significant for dementia has been brought into the ER by the with concern for possible chest pain, apparently the patient was putting her hand on the chest/upper abdominal area and did have an episode of vomiting before the patient was brought into the hospital patient on arrival to the ER and was afebrile did have elevated white count CT of the chest abdominal pelvis reported negative by radiology, subsequently did have a ultrasound which was suspicious for acute cholecystitis which for that has been confirmed on HIDA scan and an MRI of the abdomen today, because of her penicillin LLERGY she has been treated with cefazolin and clindamycin Flagyl infectious disease was consulted today for further recommendation regarding antibiotic most of the information has been obtained from review of the chart and talking to the husbandAs the patient currently unable to provide any history Review of Systems Positive points has been mentioned in HPI complete review could not be obtained because of the patient mental status Past Medical History Past Medical History: Dementia, Hyperlipidemia, Hypertension, Osteoarthritis (OA), Thyroid Disorder Additional Past Medical History / Comment(s): ALZHEIMER'S History of Any Multi-Drug Resistant Organisms: None Reported Past Surgical History: Heart Catheterization With Stent, Tonsillectomy Additional Past Surgical History / Comment(s): cataract surgery, colonoscopy, Past Anesthesia/Blood Transfusion Reactions: No Reported Reaction Date of Last Stent Placement:: 2014 Past Psychological History: No Psychological Hx Reported Smoking Status: Never smoker Past Alcohol Use History: None Reported Past Drug Use History: None Reported - Past Family History Mother Family Medical History: Asthma Father Family Medical History: Deep Vein Thrombosis (DVT), Myocardial Infarction (SD) Additional Family Medical History / Comment(s): at 59 Sister(s) Family Medical History: Cancer Additional Family Medical History / Comment(s): 2 SISTERS HAD CANCER Medications and Allergies Home Medications Medication Instructions Recorded Confirmed Type Donepezil [Aricept] 10 mg PO DAILY 07/10/14 07/10/19 History Levothyroxine Sodium [Synthroid] 25 mcg PO DAILY 07/10/14 07/10/19 History Atorvastatin [Lipitor] 80 mg PO HS #30 tab 07/17/14 07/10/19 Rx Enalapril [Vasotec] 5 mg PO BID #60 tab 07/17/14 07/10/19 Rx Metoprolol Tartrate [Lopressor] 25 mg PO BID #60 tab 07/17/14 07/10/19 Rx Nitroglycerin Sl Tabs [Nitrostat] 0.4 mg SUBLINGUAL Q5M PRN #25 tab 07/17/14 07/10/19 Rx Aspirin EC [Ecotrin Low Dose] 81 mg PO DAILY 11/07/16 07/10/19 History Cholecalciferol [Vitamin D3] 1,000 unit PO DAILY 11/07/16 07/10/19 History Diclofenac Sodium [Voltaren] 50 mg PO DAILY 11/07/16 07/10/19 History Memantine [Namenda] 10 mg PO BID 07/10/19 07/10/19 History cefTRIAXone [Rocephin] 2,000 mg IVP Q24HR #7 vial 07/12/19 Rx Allergies Allergy/AdvReac Type Severity Reaction Status Date / Time Penicillins Allergy Unknown Verified 07/10/19 13:02 propoxyphene HCl Allergy Confusion Verified 07/10/19 13:02 [From [facility]] Physical Exam Vitals: Vital Signs Temp Pulse Resp BP BP Pulse Ox 07/12/19 11:29 98.0 F 57 L 18 106/71 97 07/12/19 07:40 98.2 F 63 18 99/67 95 07/12/19 04:00 98.1 F 65 16 103/62 94 L 07/12/19 00:00 97.2 F L 63 16 104/62 95 07/11/19 20:57 71 18 159/85 07/11/19 16:41 17 07/11/19 16:00 98.2 F 53 L 17 118/79 96 Intake and Output 07/11/19 07/12/19 07/12/19 22:59 06:59 14:59 Intake Total 54.839 50 720 Balance 54.839 50 720 Intake: Intake, IV Titration 54.839 50 Amount Clindamycin 600 mg In 50 Dextrose 5% in Water 50 ml @ 50 mls/hr IVPB Q8HR [facility] Rx#:[id number] Heparin Sod,Pork in 0.45% 54.839 NaCl 25,000 unit In 0.45 % NaCl 1 250ml.bag @ 12 UNITS/KG/HR 7.076 mls/hr IV .Q24H [facility] Rx#: [id number] Oral 620 Other 100 Other: Voiding Method Diaper Diaper Diaper Incontinent Incontinent Incontinent # Voids 1 1 1 # Bowel Movements 1 GENERAL DESCRIPTION: elderly female lying in bed, no distress. No tachypnea or accessory muscle of respiration use. HEENT: Shows Pallor , no scleral icterus. Oral mucous membrane is dry. No pharyngeal erythema or thrush NECK: Trachea central, no thyromegaly. LUNGS: Unlabored breathing. Clear to auscultation anteriorly. No wheeze or crackle. HEART: S1, S2, regular rate and rhythm. No loud murmur ABDOMEN: Soft, right upper quadrant tenderness , no guarding or rigidity, no organomegaly EXTREMITIES: No edema of feet. SKIN: No rash, no masses palpable. NEUROLOGICAL: The patient is awake, alert, oriented x1, mood and affect normal. Results CBC & Chem 7: 07/12/19 06:36 07/11/19 05:59 Labs: Abnormal Lab Results - Last 24 Hours (Table) 07/11/19 07/12/19 Range/Units 14:50 06:36 WBC 11.3 H (3.8-10.6) k/uL Hgb 11.2 L (11.4-16.0) gm/dL RDW 16.0 H (11.5-15.5) % Neutrophils # 8.4 H (1.3-7.7) k/uL APTT 106.1 H* (22.0-30.0) sec Microbiology - Last 24 Hours (Table) 07/11/19 08:55 Urine Culture - Preliminary Urine,Voided Assessment and Plan Assessment: 1-patient presenting to the hospital with abdominal pain and vomiting now has been diagnosed with acute cholecystitis, unfortunately patient could not be taken for surgery as she has received Plavix with initial concern for possible SD, we will need to cover for the enteric gram-negative to be the likely pathogen associated acute cholecystitis 2-penicillin ALLERGY that would limit the number of antibiotics safe to use (1) Acute cholecystitis Current Visit: Yes Status: Acute Code(s): K81.0 - ACUTE CHOLECYSTITIS SNOMED Code(s): 38603698 (2) Leukocytosis Current Visit: Yes Status: Acute Code(s): D72.829 - ELEVATED WHITE BLOOD CELL COUNT, UNSPECIFIED SNOMED Code(s): 400579889 Plan: 1-discontinue the cefazolin and clindamycin 2-start the patient on Rocephin 2 g daily and continue with the Flagyl 3-gentle IV fluid we will follow on clinical condition and culture to further adjust medication if needed Thank you for this consultation will follow this patient along with you Time with Patient: Greater than 30
[2019-07-13] MEDS: LEVOTHYROXINE 25 MCG TAB PO SCH (06:17)
[2019-07-13 06:57] LABS: Basophils % (A) 0 %; Eosinophils # (A) 0.4 k/uL (0-0.7); Eosinophils % (A) 4 %; HCT 35.3 % (34.0-46.0); HGB 11.4 gm/dL (11.4-16.0); Lymphocytes # (A) 2.4 k/uL (1.0-4.8); Lymphocytes % (A) 26 %; MCH 26.8 pg (25.0-35.0); MCHC 32.4 g/dL (31.0-37.0); MCV 82.7 fL (80.0-100.0); Mean Platelet Volume 7.5; Monocytes # (A) 0.4 k/uL (0-1.0); Monocytes % (A) 4 %; Neutrophils # (A) 5.9 k/uL (1.3-7.7); Neutrophils % (A) 65 %; Platelet Count 200 k/uL (150-450); RBC 4.27 m/uL (3.80-5.40); RDW 15.9 % (11.5-15.5); WBC 9.1 k/uL (3.8-10.6)
[2019-07-13] MEDS: HEPARIN SODIUM,PORCINE 5,000 UNIT/ML 1 ML VIAL SQ SCH ×2 (08:46→20:39)
[2019-07-13] MEDS: PANTOPRAZOLE 40 MG/10 ML VIAL IVP SCH (08:46)
[2019-07-13] MEDS: CHOLECALCIFEROL 1,000 UNIT TAB PO SCH (08:47)
[2019-07-13] MEDS: ASPIRIN 81 MG PO SCH (08:47)
[2019-07-13] MEDS: MEMANTINE 10 MG TAB PO SCH ×2 (08:47→20:39)
[2019-07-13] MEDS: METOPROLOL TARTRATE 25 MG TAB PO SCH ×2 (08:47→20:53)
[2019-07-13] MEDS: LISINOPRIL 10 MG TAB PO SCH ×2 (08:47→20:39)
[2019-07-13] MEDS: DONEPEZIL 10 MG TAB PO SCH (08:47)
--- NOTE | 2019-07-13 09:58 | P.PN ---
Subjective Progress Note Date: 07/13/19 Principal diagnosis: Cholecystitis Patient remains pleasantly confused. Denies pain. Per the is not eating much. He agrees she appears comfortable. T-max 99. White blood cell count 9.1. No CMP from today. Objective - Vital Signs Vital signs: Vital Signs Temp 97.7 F 07/13/19 06:57 Pulse 61 07/13/19 06:57 Resp 17 07/13/19 06:57 BP 133/60 07/13/19 06:57 Pulse Ox 95 07/13/19 06:57 Intake & Output 07/12/19 07/13/19 07/13/19 18:59 06:59 18:59 Intake Total 1040 Balance 1040 Weight 42 kg Intake: Oral 940 Other 100 Other: Voiding Method Diaper Diaper Diaper Incontinent Incontinent Incontinent # Voids 1 1 # Bowel Movements 1 1 - Exam Abdomen: Soft, nondistended, nontender - Labs CBC & Chem 7: 07/13/19 06:43 07/11/19 05:59 Labs: Abnormal Lab Results - Last 24 Hours (Table) 07/13/19 Range/Units 06:43 RDW 15.9 H (11.5-15.5) % Microbiology - Last 24 Hours (Table) 07/11/19 08:55 Urine Culture - Preliminary Urine,Voided Gram Neg Bacilli Assessment and Plan (1) Acute cholecystitis Narrative/Plan: Patient with acute cholecystitis and acute MN. IV anticoagulation per cardiology. Advance diet to low-fat to give the patient more options. Continue antibiotics per infectious disease. Continue plan for cholecystectomy on Monday at this time. Current Visit: Yes Status: Acute Code(s): K81.0 - ACUTE CHOLECYSTITIS SNOMED Code(s): 02073489
[2019-07-13] MEDS: ATORVASTATIN 40 MG TAB PO SCH (20:53)
--- NOTE | 2019-07-13 22:36 | PN ---
PROGRESS NOTE DATE OF SERVICE: 07/13/2019 REASON FOR FOLLOWUP: Acute cholecystitis. INTERVAL HISTORY: The patient is currently afebrile. Patient has been breathing comfortably. No nausea, no vomiting has been reported by the family at the bedside. The patient herself denies any active symptoms. PHYSICAL EXAMINATION: On examination, her blood pressure is 133/60 with a pulse of 81, temperature 97.7. She is 95% on room air. General description is an elderly female up in the chair in no distress. Respiratory system: Unlabored breathing, clear to auscultation anteriorly. Heart S1, S2. Regular rate and rhythm. Abdomen is soft, no tenderness. LABS: Hemoglobin is 11.4, white count 9.1. DIAGNOSTIC IMPRESSION AND PLAN: Patient with acute cholecystitis. The patient's fever has resolved. White count normalized. Currently on Rocephin and Flagyl. Waiting for the cholecystectomy Monday and continue supportive care. MMODL / IJN: [id number] /
[2019-07-14] MEDS: metroNIDAZOLE 500 MG TAB PO SCH ×2 (00:33→06:25)
[2019-07-14] MEDS ORDERED: HYDROmorphone 0.5 MG/0.5 ML SYRINGE IVP PRN (06:25)
[2019-07-14] MEDS: LEVOTHYROXINE 25 MCG TAB PO SCH (06:25)
[2019-07-14 07:02] LABS: Basophils % (A) 1 %; Eosinophils # (A) 0.3 k/uL (0-0.7); Eosinophils % (A) 4 %; HCT 35.6 % (34.0-46.0); HGB 11.6 gm/dL (11.4-16.0); Lymphocytes # (A) 2.6 k/uL (1.0-4.8); Lymphocytes % (A) 31 %; MCHC 32.5 g/dL (31.0-37.0); MCV 83.1 fL (80.0-100.0); Mean Platelet Volume 7.9; Monocytes # (A) 0.4 k/uL (0-1.0); Monocytes % (A) 4 %; Neutrophils % (A) 59 %; Platelet Count 223 k/uL (150-450); RBC 4.28 m/uL (3.80-5.40); RDW 15.5 % (11.5-15.5); WBC 8.4 k/uL (3.8-10.6)
[2019-07-14 07:15] LABS: Albumin 3.2 g/dL (3.5-5.0); Calcium 8.6 mg/dL (8.4-10.2); Total Bilirubin 0.5 mg/dL (0.2-1.3); Total Protein 5.8 g/dL (6.3-8.2)
[2019-07-14] MEDS: ASPIRIN 81 MG PO SCH (07:31)
[2019-07-14] MEDS: CHOLECALCIFEROL 1,000 UNIT TAB PO SCH (07:32)
[2019-07-14] MEDS: DONEPEZIL 10 MG TAB PO SCH (07:32)
[2019-07-14] MEDS: METOPROLOL TARTRATE 25 MG TAB PO SCH ×2 (07:32→20:42)
[2019-07-14] MEDS: LISINOPRIL 10 MG TAB PO SCH ×2 (07:32→20:42)
[2019-07-14] MEDS: MEMANTINE 10 MG TAB PO SCH ×2 (07:32→20:42)
[2019-07-14] MEDS: HEPARIN SODIUM,PORCINE 5,000 UNIT/ML 1 ML VIAL SQ SCH ×2 (09:39→18:43)
[2019-07-14] MEDS: PANTOPRAZOLE 40 MG/10 ML VIAL IVP SCH (09:39)
[2019-07-14] MEDS: metroNIDAZOLE-NS PMX 500 MG in SALINE 1 100ML.BAG IVPB SCH ×2 (09:40→15:04)
[2019-07-14] MEDS: LACTATED RINGERS 1,000 ML IV SCH (09:40)
--- NOTE | 2019-07-14 10:46 | P.PN ---
Subjective Progress Note Date: 07/14/19 Principal diagnosis: Cholecystitis Patient comfortably confused. Denies pain. Nursing states that she ate fairly well yesterday however today she is not following commands when asked to swallow and there was concern for possible aspiration with liquids. Labs appear normal. She is afebrile. Objective - Vital Signs Vital signs: Vital Signs Temp 97.9 F 07/14/19 06:48 Pulse 71 07/14/19 06:48 Resp 17 07/14/19 06:48 BP 120/59 07/14/19 06:48 Pulse Ox 95 07/14/19 06:48 Intake & Output 07/13/19 07/14/19 07/14/19 18:59 06:59 18:59 Weight 42 kg 55.1 kg Other: Voiding Method Diaper Diaper Diaper Incontinent Incontinent Incontinent # Voids 1 1 # Bowel Movements 2 - Exam Abdomen: Soft, nondistended, nontender - Labs CBC & Chem 7: 07/14/19 06:37 07/14/19 06:37 Labs: Abnormal Lab Results - Last 24 Hours (Table) 07/14/19 Range/Units 06:37 Chloride 111 H (98-107) mmol/L Glucose 120 H (74-99) mg/dL Total Protein 5.8 L (6.3-8.2) g/dL Albumin 3.2 L (3.5-5.0) g/dL Assessment and Plan (1) Acute cholecystitis Narrative/Plan: Patient with clinical suspicion for aspiration today. We'll start PPN for now. Continue IV antibiotics. Tentatively plan cholecystectomy Monday. Current Visit: Yes Status: Acute Code(s): K81.0 - ACUTE CHOLECYSTITIS SNOMED Code(s): 51982413
--- NOTE | 2019-07-14 11:35 | PN ---
PROGRESS NOTE DATE OF SERVICE: 07/13/2019 SUBJECTIVE: 83-year-old white female with chest pain, acute nausea, vomiting, acute cholecystitis. She is on IV antibiotics. Awaiting for surgery on Monday. Blood thinners have been withheld partial. She is feeling better. No abdominal pain. CARDIOVASCULAR: S1, S2. LUNGS: Clear. Possible aspiration. She may be started on PPN. Continue with IV antibiotics. Await for surgery on Monday. MMODL / IJN: [id number] /
[2019-07-14 15:34] LABS: Phosphorus 4.1 mg/dL (2.5-4.5)
[2019-07-14] MEDS: INSULIN ASPART (NovoLOG) 100 UNIT/ML VIAL SQ SCH (17:29)
--- NOTE | 2019-07-14 20:38 | PN ---
PROGRESS NOTE SUBJECTIVE: 83-year-old white female with acute cholecystitis, acute atypical chest pain, abdominal pain secondary to cholecystitis. Has had broad-spectrum antibiotics until ( ). Surgery is planned for Monday. Cardiovascular S1/S2. Lungs clear. GI is soft. Hematology negative Homans. ASSESSMENT: Acute cholecystitis, choledocholithiasis, atypical chest pain, acute nausea, vomiting. Continue current treatments with IV antibiotics. Surgery is planned for Monday. Continue on broad-spectrum antibiotics. Monitor electrolytes in the meantime. MMODL / IJN: [id number] /
[2019-07-14] MEDS: ATORVASTATIN 40 MG TAB PO SCH (20:42)
[2019-07-14] MEDS: MVI, ADULT NO.4 WITH VIT K 10 ML, TRACE (CONC-1ML/DOSE) 1 ML in AMINO ACID 4.25%-D10W+L... IV SCH ×3 (21:13)
[2019-07-14] MEDS: FAT EMULSION 20% 250 ML in EMPTY BAG 1 BAG IV SCH (21:14)
--- NOTE | 2019-07-14 22:44 | PN ---
PROGRESS NOTE DATE OF SERVICE: 07/14/2019 REASON FOR FOLLOWUP: Acute cholecystitis. INTERVAL HISTORY: The patient is currently afebrile. The patient has been more awake, alert. She is breathing comfortably. Denies further nausea, no vomiting. No chest pain, shortness of breath or cough. PHYSICAL EXAMINATION: Blood pressure is 140/60 with a pulse of 59, temperature 98.5, she is 97% on room air. General description is an elderly female, lying in bed in no distress. No tachypnea or accessory muscle of respiration use. Respiratory system: Unlabored breathing, clear to auscultation anteriorly. Heart S1, S2. Regular rate and rhythm. Abdomen soft, no tenderness. Extremities, no edema of the feet. LABS: Hemoglobin 11.6, white count 8.4, BUN of 14, creatinine 0.97. Urine is gram-negative bacilli. DIAGNOSTIC IMPRESSION AND PLAN: Patient with acute cholecystitis. Currently on IV Rocephin and Flagyl to continue. Waiting for the cholecystectomy on Monday. Family at the bedside. Questions were answered. MMODL / IJN: [id number] /
[2019-07-15] MEDS: INSULIN ASPART (NovoLOG) 100 UNIT/ML VIAL SQ SCH ×4 (00:06→18:46)
[2019-07-15] MEDS: metroNIDAZOLE-NS PMX 500 MG in SALINE 1 100ML.BAG IVPB SCH ×4 (00:07→23:59)
[2019-07-15 00:15] LABS: Glucose,Whole Blood 137 mg/dL (75-99)
[2019-07-15] MEDS: LEVOTHYROXINE 25 MCG TAB PO SCH (05:56)
[2019-07-15] MEDS: LACTATED RINGERS 1,000 ML IV SCH (05:56)
[2019-07-15 06:04] LABS: Glucose,Whole Blood 169 mg/dL (75-99)
[2019-07-15 07:19] LABS: Ionized Calcium 4.9 mg/dL (4.5-5.3)
[2019-07-15 07:26] LABS: Calcium 8.1 mg/dL (8.4-10.2); Magnesium 1.8 mg/dL (1.6-2.3); Phosphorus 3.9 mg/dL (2.5-4.5); Potassium 3.3 mmol/L (3.5-5.1)
[2019-07-15] MEDS ORDERED: Potassium Replacement Protocol 1 EACH MISC MISCELLANE PRN (08:56)
[2019-07-15] MEDS: CHOLECALCIFEROL 1,000 UNIT TAB PO SCH (09:09)
[2019-07-15] MEDS: DONEPEZIL 10 MG TAB PO SCH (09:09)
[2019-07-15] MEDS: HEPARIN SODIUM,PORCINE 5,000 UNIT/ML 1 ML VIAL SQ SCH ×2 (09:09→20:32)
[2019-07-15] MEDS: ASPIRIN 81 MG PO SCH (09:09)
[2019-07-15] MEDS: LISINOPRIL 10 MG TAB PO SCH ×2 (09:10→20:13)
[2019-07-15] MEDS: MEMANTINE 10 MG TAB PO SCH ×2 (09:10→20:13)
[2019-07-15] MEDS: METOPROLOL TARTRATE 25 MG TAB PO SCH ×2 (09:10→20:13)
[2019-07-15] MEDS: PANTOPRAZOLE 40 MG/10 ML VIAL IVP SCH (10:01)
[2019-07-15] MEDS: POTASSIUM CHLORIDE 10 MEQ in WATER FOR INJECTION 1 100ML.BAG IVPB SCH ×4 (11:21→16:56)
[2019-07-15 11:50] LABS: Glucose,Whole Blood 152 mg/dL (75-99)
--- NOTE | 2019-07-15 12:08 | P.PN ---
Subjective Progress Note Date: 07/15/19 Principal diagnosis: Cholecystitis Patient doing well today. She was started on PPN yesterday given her issues related to possible aspiration. Denies pain. Pleasantly confused. Objective - Vital Signs Vital signs: Vital Signs Temp 98.9 F 07/15/19 08:05 Pulse 57 L 07/15/19 08:05 Resp 16 07/15/19 08:05 BP 127/69 07/15/19 08:05 Pulse Ox 95 07/15/19 08:05 Intake & Output 07/14/19 07/15/19 07/15/19 18:59 06:59 18:59 Intake Total 550 Balance 550 Weight 55.1 kg 55.8 kg Intake: Intake, IV Titration 550 Amount cefTRIAXone 2 gm In 50 Sodium Chloride 0.9% 50 ml @ 100 mls/hr IVPB Q24HR [facility] Rx#:[id number] metroNIDAZOLE-NS PMX 500 500 mg In Saline 1 100ml.bag @ 100 mls/hr IVPB Q8HR [facility] Rx#:[id number] Other: Voiding Method Diaper Incontinent Incontinent # Voids 3 2 # Bowel Movements 1 1 1 - Exam Abdomen: Soft, nontender, nondistended - Labs CBC & Chem 7: 07/14/19 06:37 07/15/19 06:42 Labs: Abnormal Lab Results - Last 24 Hours (Table) 07/14/19 07/15/19 07/15/19 Range/Units 06:37 00:02 05:47 Potassium (3.5-5.1) mmol/L Chloride (98-107) mmol/L Glucose (74-99) mg/dL POC Glucose (mg/dL) 137 H 169 H (75-99) mg/dL Calcium (8.4-10.2) mg/dL Triglycerides 164 H (<150) mg/dL 07/15/19 07/15/19 Range/Units 06:42 11:39 Potassium 3.3 L (3.5-5.1) mmol/L Chloride 111 H (98-107) mmol/L Glucose 158 H (74-99) mg/dL POC Glucose (mg/dL) 152 H (75-99) mg/dL Calcium 8.1 L (8.4-10.2) mg/dL Triglycerides (<150) mg/dL Assessment and Plan (1) Acute cholecystitis Narrative/Plan: Continue IV antibiotics. Continue nothing by mouth for now. Continue PPN. Arrangements for laparoscopic cholecystectomy made for tomorrow. Family updated. Current Visit: Yes Status: Acute Code(s): K81.0 - ACUTE CHOLECYSTITIS SNOMED Code(s): 13299769
[2019-07-15] MEDS: MVI, ADULT NO.4 WITH VIT K 10 ML, TRACE (CONC-1ML/DOSE) 1 ML in AMINO ACID 4.25%-D10W+L... IV SCH ×3 (15:57)
[2019-07-15] MEDS: FAT EMULSION 20% 250 ML in EMPTY BAG 1 BAG IV SCH (16:56)
[2019-07-15 18:06] LABS: Glucose,Whole Blood 169 mg/dL (75-99)
[2019-07-15] MEDS: ATORVASTATIN 40 MG TAB PO SCH (20:13)
--- NOTE | 2019-07-15 21:53 | PN ---
PROGRESS NOTE DATE OF SERVICE: 07/15/2019 REASON FOR FOLLOWUP: Acute cholecystitis. INTERVAL HISTORY: The patient is currently afebrile. The patient has been breathing comfortably. Denies having any chest pain. No cough. No nausea, no vomiting. No abdominal pain, no diarrhea. PHYSICAL EXAMINATION: Blood pressure 168/82 with a pulse of 53, temperature 98.4, she is 94% on room air. General description is an elderly female lying in bed in no distress. Respiratory system: Unlabored breathing, clear to auscultation anteriorly. Heart S1, S2. Regular rate and rhythm. Abdomen soft, no tenderness. LABS: BUN of 13, creatinine 0.82. DIAGNOSTIC IMPRESSION AND PLAN: Patient with acute cholecystitis. The patient is currently afebrile. White count is normal. Blood culture negative. Continue Rocephin and Flagyl. Scheduled for cholecystectomy tomorrow. Continue supportive care. MMODL / IJN: [id number] /
--- NOTE | 2019-07-15 22:53 | PN ---
PROGRESS NOTE HISTORY: This is a white female who was admitted for acute chest pain and abdominal pain. Found to have cholecystitis. She will need surgery tomorrow for cholecystectomy. Remains on Rocephin. Clinically, she is stable, having no chest pain or shortness of breath. Potassium is a bit low. She will have replacement today. Sugars in the mid 100s. Calcium level is a little bit low. ASSESSMENT: 1. Acute cholecystitis. 2. Acute abdominal pain/chest pain. 3. Hypokalemia. 4. Dementia. 5. Hypertension. 6. Hypothyroidism. 7. Diabetes mellitus. PLAN: Continue current treatments, prophylactic antibiotics, cholecystectomy in the morning and possible discharge in next day or two. MMODL / IJN: [id number] /
[2019-07-16] MEDS: INSULIN ASPART (NovoLOG) 100 UNIT/ML VIAL SQ SCH ×4 (00:03→18:42)
[2019-07-16 00:14] LABS: Glucose,Whole Blood 161 mg/dL (75-99)
[2019-07-16 06:14] LABS: Glucose,Whole Blood 187 mg/dL (75-99)
[2019-07-16] MEDS: LEVOTHYROXINE 25 MCG TAB PO SCH (06:18)
[2019-07-16] MEDS: LACTATED RINGERS 1,000 ML IV SCH (06:18)
[2019-07-16 06:31] LABS: Basophils % (A) 0 %; Eosinophils # (A) 0.4 k/uL (0-0.7); Eosinophils % (A) 4 %; HCT 32.8 % (34.0-46.0); HGB 10.5 gm/dL (11.4-16.0); Lymphocytes # (A) 2.1 k/uL (1.0-4.8); Lymphocytes % (A) 25 %; MCH 26.4 pg (25.0-35.0); MCHC 32.1 g/dL (31.0-37.0); MCV 82.2 fL (80.0-100.0); Mean Platelet Volume 7.9; Monocytes # (A) 0.4 k/uL (0-1.0); Monocytes % (A) 5 %; Neutrophils # (A) 5.5 k/uL (1.3-7.7); Neutrophils % (A) 65 %; Platelet Count 204 k/uL (150-450); RBC 3.99 m/uL (3.80-5.40); RDW 15.4 % (11.5-15.5); WBC 8.5 k/uL (3.8-10.6)
[2019-07-16 06:37] LABS: Albumin 2.9 g/dL (3.5-5.0); Calcium 8.4 mg/dL (8.4-10.2); Magnesium 1.9 mg/dL (1.6-2.3); Phosphorus 3.9 mg/dL (2.5-4.5); Potassium 3.5 mmol/L (3.5-5.1); Total Bilirubin 0.1 mg/dL (0.2-1.3); Total Protein 5.3 g/dL (6.3-8.2)
[2019-07-16] MEDS: ASPIRIN 81 MG PO SCH (07:51)
[2019-07-16] MEDS: DONEPEZIL 10 MG TAB PO SCH (07:52)
[2019-07-16] MEDS: MEMANTINE 10 MG TAB PO SCH ×2 (07:52→20:10)
[2019-07-16] MEDS: CHOLECALCIFEROL 1,000 UNIT TAB PO SCH (07:52)
[2019-07-16] MEDS: HEPARIN SODIUM,PORCINE 5,000 UNIT/ML 1 ML VIAL SQ SCH ×2 (08:48→20:12)
[2019-07-16] MEDS: LISINOPRIL 10 MG TAB PO SCH ×2 (08:49→20:10)
[2019-07-16] MEDS: METOPROLOL TARTRATE 25 MG TAB PO SCH ×2 (08:50→20:10)
[2019-07-16] MEDS: PANTOPRAZOLE 40 MG/10 ML VIAL IVP SCH (09:10)
[2019-07-16] MEDS ORDERED: INDOCYANINE GREEN 25 MG VIAL IV STA (09:23)
[2019-07-16] MEDS: metroNIDAZOLE-NS PMX 500 MG in SALINE 1 100ML.BAG IVPB SCH ×2 (10:01→21:12)
[2019-07-16] MEDS ORDERED: IV FLUID CONTINUATION 1,000 ML IV ONE (10:25)
[2019-07-16] MEDS ORDERED: BUPIVACAIN-EPI 0.25%-1:200,000 30 ML VIAL SQ ONE (11:12)
[2019-07-16] MEDS ORDERED: METOPROLOL TARTRATE 5 MG/5 ML VIAL IVP ONE (11:14)
[2019-07-16 11:18] LABS: Glucose,Whole Blood 161 mg/dL (75-99)
[2019-07-16] MEDS ORDERED: ONDANSETRON 4 MG/2 ML VIAL IVP ONE (11:20)
[2019-07-16] MEDS ORDERED: DEXAMETHASONE SOD PHOSPHATE 10 MG/ML 1 ML VIAL IV ONE (11:20)
--- NOTE | 2019-07-16 11:31 | P.PN ---
Subjective Progress Note Date: 07/16/19 This is an 83-year-old female admitted with non-STEMI, acute cholecystitis, possible acute UTI, final urine culture pending and multiple other medical issues. Troponins less than 0.012, 0.073, 0.103. Echo reported normal LV function, EF greater than 55% . Evaluated by cardiology, medical management recommended. Patient currently on heparin drip. CT reported ill-defined hypodensity within the anterior head of the pancreas measuring 3.5 x 1.2 cm, possible neoplasm, possible pancreatitis (though lipase only a 68)., Diverticulosis, nonspecific right adnexal large calcification -no specific, moderate size hiatal hernia, Abdominal ultrasound reporting acute cholecystitis with dilated common bile duct, pericholecystic fluid, biliary sludge and gallbladder wall thickening, visualization of pancreas suboptimal, limited evaluation of kidneys liver aorta with left renal cyst. Evaluated by surgery, H CHIKIS scan ordered. Possible UTI with urine culture pending. Afebrile, WBC trending down, 15. Denies chest pain, palpitations or shortness of breath. Denies abdominal pain. Telemetry sinus bradycardia. 07/12/2019 HIDA scan consistent with acute cholecystitis and cystic duct obstruction. Abdomen MR reporting no evidence of pancreatic mass ,gallbladder hydrops, gallbladder sludge, thickening empiric cholecystic fluid compatible with cholecystitis, changes of diverticulosis of the colon noted with no definite pathological adenopathy, vertebral body hemangiomas, possible hepatic steatosis, paraspinal soft tissue muscular atrophy incidentally noted, possible disc herniation at T10-T11 encroaching upon spinal cord, abnormal signal centrall within spinal canal at presumed level L3-L4 possible small extruded disc fragment or intrathecal neoplasm. Urine culture reporting gram-negative bacilli .Maintained on IV Rocephin.Afebrile, vital signs stable. Denies abdominal pain. Denies chest pain, palpitations or shortness of breath. 07/16/2019 Maintained on PPN secondary to questionable aspiration. Swallow evaluation pending. Continues on IV Rocephin, Flagyl. BUN 11, creatinine 0.77 .Scheduled for cholecystectomy today. Denies nausea, vomiting, diarrhea. Denies abdominal pain. Denies chest pain, palpitations or shortness of breath. Systolic blood pressure ranging in the high 90s, currently. Denies lightheadedness, dizziness or focal deficits. Afebrile, normal WBC. Objective - Vital Signs Vital signs: Vital Signs Temp 98.4 F 07/16/19 10:46 Pulse 96 07/16/19 10:46 Resp 16 07/16/19 10:46 BP 184/72 07/16/19 10:46 Pulse Ox 96 07/16/19 10:46 Intake & Output 07/15/19 07/16/19 07/16/19 18:59 06:59 18:59 Intake Total 936.667 100 Balance 936.667 100 Weight 55.6 kg Intake: IV 100 Intake, IV Titration 936.667 Amount Mvi, Adult No.4 with Vit 936.667 K 10 ml Trace (Conc-1Ml/ Dose) 1 ml In Amino Acid 4.25%-D10w+Lytes*E* 1,000 ml @ 50 mls/hr IV . [id number] [facility] Rx#:[id number] Other: Voiding Method Diaper Diaper Incontinent Incontinent # Voids 1 # Bowel Movements 1 1 - Exam PHYSICAL EXAM: VITAL SIGNS: As above GENERAL: Sitting up in bed, no acute distress, pleasantly confused. HEENT: Conjunctivae normal. eyes normal. Oral mucosa dry NECK: No JVD. No thyroid enlargement. No LNs CARDIOVASCULAR: S1, S2 regular.systolic murmur RESPIRATION: Breath sounds diminished in the bases. No rhonchi , crackles, or wheezing. ABDOMEN: Soft, nontender. No guarding. no masses palpable. Positive Bowel sounds. LEGS: No edema. no swelling. No calf tenderness. PSYCHIATRY: Alert and oriented X 2, mood and affect calm, cooperative. NERVOUS SYSTEM: Cranial N 2-12 grossly normal. Moves all 4 limbs. Diffuse weakness, No focal deficits. Strength and sensation grossly intact. Skin: no lesions, no rash Microbiology 07/11/19 08:55 Urine,Voided Urine Culture - Preliminary Gram Neg Bacilli - Labs CBC & Chem 7: 07/16/19 06:05 07/16/19 06:05 Labs: Abnormal Lab Results - Last 24 Hours (Table) 07/15/19 07/15/19 07/16/19 Range/Units 11:39 17:53 00:02 Hgb (11.4-16.0) gm/dL Hct (34.0-46.0) % Chloride (98-107) mmol/L Glucose (74-99) mg/dL POC Glucose (mg/dL) 152 H 169 H 161 H (75-99) mg/dL Total Bilirubin (0.2-1.3) mg/dL Total Protein (6.3-8.2) g/dL Albumin (3.5-5.0) g/dL 07/16/19 07/16/19 07/16/19 Range/Units 06:03 06:05 06:05 Hgb 10.5 L (11.4-16.0) gm/dL Hct 32.8 L (34.0-46.0) % Chloride 109 H (98-107) mmol/L Glucose 176 H (74-99) mg/dL POC Glucose (mg/dL) 187 H (75-99) mg/dL Total Bilirubin 0.1 L (0.2-1.3) mg/dL Total Protein 5.3 L (6.3-8.2) g/dL Albumin 2.9 L (3.5-5.0) g/dL Microbiology - Last 24 Hours (Table) 07/11/19 08:55 Urine Culture - Preliminary Urine,Voided Gram Neg Bacilli Assessment and Plan Assessment: Active non-STEMI -Acute cholecystitis -Leukocytosis secondary to the above,resolved -Acute UTI, gram-negative bacilli -Possible pancreatic head neoplasm, MR of the abdomen reported no evidence of pancreatic mass -CAD with history of stent -Hypertension -Alzheimer's dementia -Diabetes mellitus -Dyslipidemia -Atelectasis -possible disc herniation at T10-T11 encroaching upon spinal cord, abnormal signal centrall within spinal canal at presumed level L3-L4 possible small ext ruded disc fragment or intrathecal neoplasm per MR -paraspinal soft tissue muscular atrophy incidentally noted on MR -Diverticulosis changes, further follow-up with GI outpatient -Possible hepatic steatosis Plan: Continue on current medication regime ,monitoring and symptomatic treatment. Cholecystectomy scheduled for today. Maintained PPN. Swallow eval pending.maintain IV antibiotics. Further recommendations to follow. The impression and plan of care has been dictated as directed. : I performed a history and examination of this patient, discussed the same with the dictator. I agree with the dictator's note ,documented as a scribe. Any additional findings or plans will be noted.
[2019-07-16] MEDS: MVI, ADULT NO.4 WITH VIT K 10 ML, TRACE (CONC-1ML/DOSE) 1 ML in AMINO ACID 4.25%-D10W+L... IV SCH ×3 (12:08)
[2019-07-16] MEDS ORDERED: PHENYLEPHRINE-0.9% NACL SYG 1 MG/10 ML SYRINGE ONE (12:16)
[2019-07-16] MEDS ORDERED: NEOSTIGMINE 1 MG/ML 10 ML VIAL ONE (12:16)
[2019-07-16] MEDS ORDERED: HYDROmorphone (PF) 1 MG/ML ONE (12:16)
[2019-07-16] MEDS ORDERED: fentaNYL (PF) 50 MCG/ML 2 ML AMP ONE (12:16)
[2019-07-16] MEDS ORDERED: PROPOFOL 10 MG/ML 20 ML VIAL IV ONE (12:16)
[2019-07-16] MEDS ORDERED: GLYCOPYRROLATE 0.2 MG/ML 2 ML VIAL ONE (12:16)
[2019-07-16] MEDS ORDERED: ROCURONIUM BROMIDE 10 MG/ML 10 ML VIAL IV ONE (12:16)
[2019-07-16] MEDS ORDERED: LACTATED RINGERS 1,000 ML IV ONE (12:41)
[2019-07-16] MEDS ORDERED: ACETAMINOPHEN TAB 325 MG TAB PO PRN (14:24)
[2019-07-16] MEDS ORDERED: NALOXONE 0.4 MG/ML 1 ML VIAL IV PRN (14:24)
[2019-07-16] MEDS ORDERED: DEXAMETHASONE SOD PHOSPHATE 10 MG/ML 1 ML VIAL IV PRN (14:26)
--- NOTE | 2019-07-16 14:28 | P.OP ---
Date of Procedure: 07/16/19 Preoperative Diagnosis: Acute cholecystitis, ischemic cardiomyopathy, myocardial ischemia, severe dementia Postoperative Diagnosis: Same Procedure(s) Performed: Robotic cholecystectomy Anesthesia: GETA, local Surgeon: Vita Hammer Estimated Blood Loss (ml): 20 Pathology: other (Gallbladder) Condition: stable Disposition: floor Operative Findings: 1. Moderate adhesions omentum to the gallbladder with hydrops cholecystitis with clear bile 2. Contaminated case secondary to the decompressed gallbladder 3. Resection using dome down technique performed 4. Console time 55 minutes
[2019-07-16] MEDS: POTASSIUM CHLORIDE 10 MEQ in WATER FOR INJECTION 1 100ML.BAG IVPB SCH (17:40)
[2019-07-16] MEDS: FAT EMULSION 20% 250 ML in EMPTY BAG 1 BAG IV SCH (17:41)
[2019-07-16] MEDS ORDERED: ENALAPRILAT 1.25 MG/ML 1 ML VIAL IVP PRN (17:52)
[2019-07-16] MEDS ORDERED: hydrALAZINE HCL 20 MG/ML 1 ML VIAL IVP PRN (17:52)
[2019-07-16 18:23] LABS: Glucose,Whole Blood 267 mg/dL (75-99)
[2019-07-16 18:23] LABS: Glucose,Whole Blood 256 mg/dL (75-99)
[2019-07-16 18:23] LABS: Glucose,Whole Blood 572 mg/dL (75-99)
[2019-07-16] MEDS: MAGNESIUM SULFATE-D5W PMX 1 GM in DEXTROSE/WATER 1 100ML.BAG IVPB SCH ×2 (19:57→23:06)
[2019-07-16] MEDS: ATORVASTATIN 40 MG TAB PO SCH (20:09)
--- NOTE | 2019-07-16 20:24 | PN ---
PROGRESS NOTE DATE OF SERVICE: 07/16/2019 REASON FOR FOLLOWUP: Acute cholecystitis. INTERVAL HISTORY: The patient is currently afebrile. The patient was taken to the OR and the patient is status post laparoscopic cholecystectomy. The patient tolerated the procedure. Currently sleepy and recovering from the anesthesia. Unable to provide any history. No nausea, vomiting or diarrhea reported by the nursing staff. PHYSICAL EXAMINATION: Blood pressure 123/58 with a pulse of 83, temperature 98. She is 95% on 2 L nasal cannula. General description is an elderly female lying in bed in no distress. RESPIRATORY SYSTEM: Unlabored breathing. Clear to auscultation anteriorly. HEART: S1, S2. Regular rate and rhythm. ABDOMEN: Soft. No tenderness. LABS: Hemoglobin is 10.5, white count 8.5. BUN of 11, creatinine 0.77. Blood culture not obtained. Urine with gram-negative. DIAGNOSTIC IMPRESSION AND PLAN: Patient with acute cholecystitis, status post laparoscopic cholecystectomy. Patient tolerated the procedure. Patient at this time is on IV Rocephin and Flagyl; to continue while monitoring clinical course closely. Continue with supportive care. MMODL / IJN: [id number] /
[2019-07-16] MEDS ORDERED: MAGNESIUM SULFATE-D5W PMX 1 GM in DEXTROSE/WATER 1 100ML.BAG IVPB SCH (23:00)
[2019-07-17] MEDS: POTASSIUM CHLORIDE 10 MEQ in WATER FOR INJECTION 1 100ML.BAG IVPB SCH ×3 (00:23→02:43)
[2019-07-17] MEDS: INSULIN ASPART (NovoLOG) 100 UNIT/ML VIAL SQ SCH ×4 (00:48→20:41)
[2019-07-17 00:55] LABS: Glucose,Whole Blood 301 mg/dL (75-99)
[2019-07-17] MEDS: metroNIDAZOLE-NS PMX 500 MG in SALINE 1 100ML.BAG IVPB SCH ×3 (04:26→20:34)
[2019-07-17 05:04] LABS: African American GFR (CKD) >90 (>60 ml/min/1.73 sqM); Anion Gap 10 mmol/L; Blood Urea Nitrogen 15 mg/dL (7-17); Calcium 8.5 mg/dL (8.4-10.2); Carbon Dioxide 19 mmol/L (22-30); Chloride 109 mmol/L (98-107); Glucose 253 mg/dL (74-99); Magnesium 2.7 mg/dL (1.6-2.3); Phosphorus 3.2 mg/dL (2.5-4.5); Potassium 5.1 mmol/L (3.5-5.1); Sodium 138 mmol/L (137-145)
[2019-07-17] MEDS: MVI, ADULT NO.4 WITH VIT K 10 ML, TRACE (CONC-1ML/DOSE) 1 ML in AMINO ACID 4.25%-D10W+L... IV SCH ×3 (05:20)
[2019-07-17] MEDS: LACTATED RINGERS 1,000 ML IV SCH (05:53)
[2019-07-17] MEDS: LEVOTHYROXINE 25 MCG TAB PO SCH (05:54)
[2019-07-17 06:08] LABS: Glucose,Whole Blood 222 mg/dL (75-99)
[2019-07-17] MEDS: PANTOPRAZOLE 40 MG/10 ML VIAL IVP SCH (08:28)
[2019-07-17] MEDS: HEPARIN SODIUM,PORCINE 5,000 UNIT/ML 1 ML VIAL SQ SCH ×2 (08:30→20:30)
[2019-07-17] MEDS: METOPROLOL TARTRATE 25 MG TAB PO SCH ×2 (08:31→20:26)
[2019-07-17] MEDS: DONEPEZIL 10 MG TAB PO SCH (08:31)
[2019-07-17] MEDS: ASPIRIN 81 MG PO SCH (08:31)
[2019-07-17] MEDS: LISINOPRIL 10 MG TAB PO SCH ×2 (08:31→20:20)
[2019-07-17] MEDS: CHOLECALCIFEROL 1,000 UNIT TAB PO SCH (08:31)
[2019-07-17] MEDS: MEMANTINE 10 MG TAB PO SCH ×2 (08:31→20:26)
[2019-07-17 11:20] LABS: HCT 34.8 % (34.0-46.0); HGB 11.2 gm/dL (11.4-16.0); MCH 26.7 pg (25.0-35.0); MCHC 32.2 g/dL (31.0-37.0); MCV 82.8 fL (80.0-100.0); Mean Platelet Volume 7.2; Platelet Count 224 k/uL (150-450); RBC 4.21 m/uL (3.80-5.40); RDW 15.2 % (11.5-15.5)
[2019-07-17 11:29] LABS: Albumin 3.2 g/dL (3.5-5.0); Calcium 8.5 mg/dL (8.4-10.2); Potassium 4.2 mmol/L (3.5-5.1); Total Bilirubin 0.2 mg/dL (0.2-1.3); Total Protein 5.6 g/dL (6.3-8.2)
--- NOTE | 2019-07-17 13:27 | P.PN ---
<Kathryn Santiago A - Last Filed: 07/17/19 13:25> Subjective Progress Note Date: 07/17/19 CHIEF COMPLAINT: Cholecystitis HISTORY OF PRESENT ILLNESS: Patient is status post robotic cholecystectomy. Postoperative day #1. She reports her pain is tolerable. Denies nausea or vomiting. Speech therapy completed a swallow eval, which patient passed. She is tolerating diet without difficulty. WBC 16.0. AST 67. ALT 57. PHYSICAL EXAM: VITAL SIGNS: Currently stable. GENERAL: Well-developed in no acute distress. HEENT: No sclera icterus. Extraocular movements grossly intact. Moist buccal mucosa. Head is atraumatic, normocephalic. Hears conversational speech. No nasal drainage. NECK: Supple without lymphadenopathy. CHEST: Non-labored respirations and equal bilateral excursions. CARDIOVASCULAR: Regular rate with regular rhythm. Palpable 2+ radial pulses. ABDOMEN: Soft. Nondistended. Nontender. Surgical sites clean dry intact without drainage. MUSCULOSKELETAL: No clubbing, cyanosis or edema. NEUROLOGIC: No focal or lateralizing signs. Cranial nerves II through XII grossly intact. PSYCH: Appropriate affect. Alert and oriented to person. SKIN: Well perfused. Good skin turgor. ASSESSMENT: 1. Acute cholecystitis, status post robotic cholecystectomy PLAN: 1. Pain control 2. Diet as tolerated 3. Incentive spirometry 4. Activity as tolerated 5. Stable for discharge from surgical standpoint on oral antibiotics. Follow up with Dr. Hammer next week. Nurse practitioner note has been reviewed by physician. Signing provider agrees with the documented findings, assessment, and plan of care. Objective - Vital Signs Vital signs: Vital Signs Temp 98.4 F 07/17/19 08:25 Pulse 63 07/17/19 08:25 Resp 16 07/17/19 08:25 BP 160/77 07/17/19 08:25 Pulse Ox 99 07/17/19 08:25 Intake & Output 07/16/19 07/17/19 07/17/19 18:59 06:59 18:59 Intake Total 2008.167 1060 100 Output Total 20 Balance 9804.338 4340 100 Weight 56 kg Intake: IV 1000 Intake, IV Titration 0522.031 6777 100 Amount Magnesium Sulfate-D5w Pmx 100 1 gm In Dextrose/Water 1 100ml.bag @ 100 mls/hr IVPB Q1H [facility] Rx#: [id number] Mvi, Adult No.4 with Vit 1009.167 860 K 10 ml Trace (Conc-1Ml/ Dose) 1 ml In Amino Acid 4.25%-D10w+Lytes*E* 1,000 ml @ 50 mls/hr IV . [id number] [facility] Rx#:[id number] metroNIDAZOLE-NS PMX 500 100 100 mg In Saline 1 100ml.bag @ 100 mls/hr IVPB Q8H [facility] Rx#:[id number] Output: Estimated Blood Loss 20 Other: Voiding Method Diaper Diaper Incontinent Incontinent # Voids 2 2 - Labs CBC & Chem 7: 07/17/19 10:57 07/17/19 10:57 Labs: Abnormal Lab Results - Last 24 Hours (Table) 07/16/19 07/16/19 07/16/19 Range/Units 18:17 18:19 18:21 WBC (3.8-10.6) k/uL Hgb (11.4-16.0) gm/dL Chloride (98-107) mmol/L Carbon Dioxide (22-30) mmol/L Glucose (74-99) mg/dL POC Glucose (mg/dL) 572 H 267 H 256 H (75-99) mg/dL Magnesium (1.6-2.3) mg/dL AST (14-36) U/L ALT (9-52) U/L Total Protein (6.3-8.2) g/dL Albumin (3.5-5.0) g/dL 07/17/19 07/17/19 07/17/19 Range/Units 00:34 04:21 05:57 WBC (3.8-10.6) k/uL Hgb (11.4-16.0) gm/dL Chloride 109 H (98-107) mmol/L Carbon Dioxide 19 L (22-30) mmol/L Glucose 253 H (74-99) mg/dL POC Glucose (mg/dL) 301 H 222 H (75-99) mg/dL Magnesium 2.7 H (1.6-2.3) mg/dL AST (14-36) U/L ALT (9-52) U/L Total Protein (6.3-8.2) g/dL Albumin (3.5-5.0) g/dL 07/17/19 07/17/19 Range/Units 10:57 10:57 WBC 16.0 H (3.8-10.6) k/uL Hgb 11.2 L (11.4-16.0) gm/dL Chloride 109 H (98-107) mmol/L Carbon Dioxide (22-30) mmol/L Glucose 212 H (74-99) mg/dL POC Glucose (mg/dL) (75-99) mg/dL Magnesium (1.6-2.3) mg/dL AST 67 H (14-36) U/L ALT 57 H (9-52) U/L Total Protein 5.6 L (6.3-8.2) g/dL Albumin 3.2 L (3.5-5.0) g/dL Assessment and Plan (1) Acute cholecystitis Current Visit: Yes Status: Acute Code(s): K81.0 - ACUTE CHOLECYSTITIS SNOMED Code(s): 88624720 <Vita Hammer - Last Filed: 07/17/19 21:17> Subjective Recommend antibiotics for discharge. Diet as tolerated. Follow-up in one week. Objective - Vital Signs Vital signs: Vital Signs Temp 97.5 F L 07/17/19 19:49 Pulse 76 07/17/19 19:49 Resp 18 07/17/19 19:49 BP 174/71 07/17/19 19:49 Pulse Ox 94 L 07/17/19 19:49 Intake & Output 07/17/19 07/17/19 07/18/19 06:59 18:59 06:59 Intake Total 1060 100 Balance 1060 100 Weight 56 kg 56 kg Intake: Intake, IV Titration 1060 100 Amount Magnesium Sulfate-D5w Pmx 100 1 gm In Dextrose/Water 1 100ml.bag @ 100 mls/hr IVPB Q1H [facility] Rx#: [id number] Mvi, Adult No.4 with Vit 860 K 10 ml Trace (Conc-1Ml/ Dose) 1 ml In Amino Acid 4.25%-D10w+Lytes*E* 1,000 ml @ 50 mls/hr IV . [id number] [facility] Rx#:[id number] metroNIDAZOLE-NS PMX 500 100 100 mg In Saline 1 100ml.bag @ 100 mls/hr IVPB Q8H [facility] Rx#:[id number] Other: Voiding Method Diaper Incontinent # Voids 2 2 1 - Labs CBC & Chem 7: 07/17/19 10:57 07/17/19 10:57 Labs: Abnormal Lab Results - Last 24 Hours (Table) 07/17/19 07/17/19 07/17/19 Range/Units 00:34 04:21 05:57 WBC (3.8-10.6) k/uL Hgb (11.4-16.0) gm/dL Chloride 109 H (98-107) mmol/L Carbon Dioxide 19 L (22-30) mmol/L Glucose 253 H (74-99) mg/dL POC Glucose (mg/dL) 301 H 222 H (75-99) mg/dL Magnesium 2.7 H (1.6-2.3) mg/dL AST (14-36) U/L ALT (9-52) U/L Total Protein (6.3-8.2) g/dL Albumin (3.5-5.0) g/dL 07/17/19 07/17/19 07/17/19 Range/Units 10:57 10:57 17:57 WBC 16.0 H (3.8-10.6) k/uL Hgb 11.2 L (11.4-16.0) gm/dL Chloride 109 H (98-107) mmol/L Carbon Dioxide (22-30) mmol/L Glucose 212 H (74-99) mg/dL POC Glucose (mg/dL) 108 H (75-99) mg/dL Magnesium (1.6-2.3) mg/dL AST 67 H (14-36) U/L ALT 57 H (9-52) U/L Total Protein 5.6 L (6.3-8.2) g/dL Albumin 3.2 L (3.5-5.0) g/dL 07/17/19 Range/Units 20:16 WBC (3.8-10.6) k/uL Hgb (11.4-16.0) gm/dL Chloride (98-107) mmol/L Carbon Dioxide (22-30) mmol/L Glucose (74-99) mg/dL POC Glucose (mg/dL) 161 H (75-99) mg/dL Magnesium (1.6-2.3) mg/dL AST (14-36) U/L ALT (9-52) U/L Total Protein (6.3-8.2) g/dL Albumin (3.5-5.0) g/dL
[2019-07-17 15:52] VITALS: BMI 24.9
--- NOTE | 2019-07-17 16:40 | P.PN ---
Subjective Progress Note Date: 07/17/19 This is an 83-year-old female admitted with non-STEMI, acute cholecystitis, possible acute UTI, final urine culture pending and multiple other medical issues. Troponins less than 0.012, 0.073, 0.103. Echo reported normal LV function, EF greater than 55% . Evaluated by cardiology, medical management recommended. Patient currently on heparin drip. CT reported ill-defined hypodensity within the anterior head of the pancreas measuring 3.5 x 1.2 cm, possible neoplasm, possible pancreatitis (though lipase only a 68)., Diverticulosis, nonspecific right adnexal large calcification -no specific, moderate size hiatal hernia, Abdominal ultrasound reporting acute cholecystitis with dilated common bile duct, pericholecystic fluid, biliary sludge and gallbladder wall thickening, visualization of pancreas suboptimal, limited evaluation of kidneys liver aorta with left renal cyst. Evaluated by surgery, H CHIKIS scan ordered. Possible UTI with urine culture pending. Afebrile, WBC trending down, 15. Denies chest pain, palpitations or shortness of breath. Denies abdominal pain. Telemetry sinus bradycardia. 07/12/2019 HIDA scan consistent with acute cholecystitis and cystic duct obstruction. Abdomen MR reporting no evidence of pancreatic mass ,gallbladder hydrops, gallbladder sludge, thickening empiric cholecystic fluid compatible with cholecystitis, changes of diverticulosis of the colon noted with no definite pathological adenopathy, vertebral body hemangiomas, possible hepatic steatosis, paraspinal soft tissue muscular atrophy incidentally noted, possible disc herniation at T10-T11 encroaching upon spinal cord, abnormal signal centrall within spinal canal at presumed level L3-L4 possible small extruded disc fragment or intrathecal neoplasm. Urine culture reporting gram-negative bacilli .Maintained on IV Rocephin.Afebrile, vital signs stable. Denies abdominal pain. Denies chest pain, palpitations or shortness of breath. 07/16/2019 Maintained on PPN secondary to questionable aspiration. Swallow evaluation pending. Continues on IV Rocephin, Flagyl. BUN 11, creatinine 0.77 .Scheduled for cholecystectomy today. Denies nausea, vomiting, diarrhea. Denies abdominal pain. Denies chest pain, palpitations or shortness of breath. Systolic blood pressure ranging in the high 90s, currently. Denies lightheadedness, dizziness or focal deficits. Afebrile, normal WBC. 07/17/2019 status post robotic cholecystectomy with perforated gallbladder. Tolerated procedure well. Afebrile, WBC elevated at 16. Mildly elevated AST / ALT. Pain controlled. PPN weaned off, passed swallow evaluation as per speech therapy. Good diet intake with no nausea vomiting or diarrhea. Elevated blood sugars into the low 200s. Passing flatus, no bowel movement. Objective - Vital Signs Vital signs: Vital Signs Temp 98.4 F 07/17/19 08:25 Pulse 63 07/17/19 08:25 Resp 16 07/17/19 08:25 BP 160/77 07/17/19 08:25 Pulse Ox 99 07/17/19 08:25 Intake & Output 07/16/19 07/17/19 07/17/19 18:59 06:59 18:59 Intake Total 2008.167 1060 100 Output Total 20 Balance 4346.670 2099 100 Weight 56 kg Intake: IV 1000 Intake, IV Titration 8492.114 7596 100 Amount Magnesium Sulfate-D5w Pmx 100 1 gm In Dextrose/Water 1 100ml.bag @ 100 mls/hr IVPB Q1H [facility] Rx#: [id number] Mvi, Adult No.4 with Vit 1009.167 860 K 10 ml Trace (Conc-1Ml/ Dose) 1 ml In Amino Acid 4.25%-D10w+Lytes*E* 1,000 ml @ 50 mls/hr IV . [id number] [facility] Rx#:[id number] metroNIDAZOLE-NS PMX 500 100 100 mg In Saline 1 100ml.bag @ 100 mls/hr IVPB Q8H [facility] Rx#:[id number] Output: Estimated Blood Loss 20 Other: Voiding Method Diaper Incontinent # Voids 2 - Exam PHYSICAL EXAM: VITAL SIGNS: As above GENERAL: Sitting up in bed, no acute distress, pleasantly confused. HEENT: Conjunctivae normal. eyes normal. Oral mucosa moist NECK: No JVD. No thyroid enlargement. No LNs CARDIOVASCULAR: S1, S2 regular.systolic murmur RESPIRATION: Breath sounds diminished in the bases. No rhonchi , crackles, or wheezing. ABDOMEN: Soft, status post surgery. No guarding. no masses palpable. Positive Bowel sounds. LEGS: No edema. no swelling. No calf tenderness. PSYCHIATRY: Alert and oriented X 2, mood and affect calm, cooperative. NERVOUS SYSTEM: Cranial N 2-12 grossly normal. Moves all 4 limbs. Diffuse weakness, No focal deficits. Strength and sensation grossly intact. Skin: no lesions, no rash Microbiology 07/11/19 08:55 Urine,Voided Urine Culture - Preliminary Gram Neg Bacilli - Labs CBC & Chem 7: 07/17/19 10:57 07/17/19 10:57 Labs: Abnormal Lab Results - Last 24 Hours (Table) 07/16/19 07/16/19 07/16/19 Range/Units 10:59 18:17 18:19 Chloride (98-107) mmol/L Carbon Dioxide (22-30) mmol/L Glucose (74-99) mg/dL POC Glucose (mg/dL) 161 H 572 H 267 H (75-99) mg/dL Magnesium (1.6-2.3) mg/dL 07/16/19 07/17/19 07/17/19 Range/Units 18:21 00:34 04:21 Chloride 109 H (98-107) mmol/L Carbon Dioxide 19 L (22-30) mmol/L Glucose 253 H (74-99) mg/dL POC Glucose (mg/dL) 256 H 301 H (75-99) mg/dL Magnesium 2.7 H (1.6-2.3) mg/dL 07/17/19 Range/Units 05:57 Chloride (98-107) mmol/L Carbon Dioxide (22-30) mmol/L Glucose (74-99) mg/dL POC Glucose (mg/dL) 222 H (75-99) mg/dL Magnesium (1.6-2.3) mg/dL Microbiology - Last 24 Hours (Table) 07/11/19 08:55 Urine Culture - Preliminary Urine,Voided Gram Neg Bacilli Assessment and Plan Assessment: Active non-STEMI -Acute cholecystitis, status post robot-assisted cholecystectomy for perforated gallbladder. -Leukocytosis secondary to the above -Acute UTI, gram-negative bacilli -Possible pancreatic head neoplasm, MR of the abdomen reported no evidence of pancreatic mass -CAD with history of stent -Hypertension -Alzheimer's dementia -Diabetes mellitus -Dyslipidemia -Atelectasis -possible disc herniation at T10-T11 encroaching upon spinal cord, abnormal signal centrall within spinal canal at presumed level L3-L4 possible small extruded disc fragment or intrathecal neoplasm per MR -paraspinal soft tissue muscular atrophy incidentally noted on MR -Diverticulosis changes, further follow-up with GI outpatient -Possible hepatic steatosis Plan: Continue on current medication regime ,monitoring and symptomatic treatment.Maintain IV antibiotics. Incentive spirometer every hour 10 while awake. Increase ambulation as tolerated. DC antibiotics as per ID. Discharge planning in progress for tomorrow. The impression and plan of care has been dictated as directed. : I performed a history and examination of this patient, discussed the same with the dictator. I agree with the dictator's note ,documented as a scribe. Any additional findings or plans will be noted.
--- NOTE | 2019-07-17 16:43 | PN ---
PROGRESS NOTE DATE OF SERVICE: 07/17/2019 REASON FOR FOLLOWUP: Acute cholecystitis with fever. INTERVAL HISTORY: The patient is currently afebrile. The patient is status post robotic-assisted laparoscopic cholecystectomy. The patient tolerated the procedure well. The patient is currently tolerating her diet. No nausea, no vomiting. No abdominal pain or any diarrhea. PHYSICAL EXAMINATION: Blood pressure 160/77 with a pulse of 63, temperature 98.4. She is 99% on 2 L nasal cannula. General description is an elderly female lying in bed in no distress. RESPIRATORY SYSTEM: Unlabored breathing. Clear to auscultation anteriorly. HEART: S1, S2. Regular rate and rhythm. ABDOMEN: Soft. No significant tenderness, guarding or rigidity. EXTREMITIES: No edema of the feet. LABS: Hemoglobin 11.2, white count 16, with a BUN of 16, creatinine 0.82. DIAGNOSTIC IMPRESSION AND PLAN: Patient with acute cholecystitis, for which the patient is status post laparoscopic cholecystectomy. White count has slightly jumped higher today; hence will monitor the patient closely on IV antibiotic for another 24 hours. Repeat CBC tomorrow. at the bedside. Questions were answered. MMODL / IJN: [id number] /
[2019-07-17 18:09] LABS: Glucose,Whole Blood 108 mg/dL (75-99)
[2019-07-17 20:18] LABS: Glucose,Whole Blood 161 mg/dL (75-99)
[2019-07-17] MEDS: ATORVASTATIN 40 MG TAB PO SCH (20:24)
[2019-07-18] MEDS: metroNIDAZOLE-NS PMX 500 MG in SALINE 1 100ML.BAG IVPB SCH ×3 (04:56→21:35)
[2019-07-18] MEDS: LACTATED RINGERS 1,000 ML IV SCH (05:28)
[2019-07-18] MEDS: LEVOTHYROXINE 25 MCG TAB PO SCH (05:29)
[2019-07-18 07:00] LABS: Glucose,Whole Blood 133 mg/dL (75-99)
[2019-07-18 07:32] LABS: Basophils % (A) 0 %; Eosinophils # (A) 0.4 k/uL (0-0.7); Eosinophils % (A) 3 %; HCT 31.1 % (34.0-46.0); HGB 10.1 gm/dL (11.4-16.0); Lymphocytes # (A) 2.2 k/uL (1.0-4.8); Lymphocytes % (A) 17 %; MCH 26.9 pg (25.0-35.0); MCHC 32.6 g/dL (31.0-37.0); MCV 82.5 fL (80.0-100.0); Mean Platelet Volume 7.8; Monocytes # (A) 0.8 k/uL (0-1.0); Monocytes % (A) 6 %; Neutrophils # (A) 9.7 k/uL (1.3-7.7); Neutrophils % (A) 73 %; Platelet Count 215 k/uL (150-450); RBC 3.77 m/uL (3.80-5.40); RDW 15.8 % (11.5-15.5); WBC 13.3 k/uL (3.8-10.6)
[2019-07-18 07:48] LABS: Albumin 2.8 g/dL (3.5-5.0); Calcium 8.2 mg/dL (8.4-10.2); Magnesium 1.9 mg/dL (1.6-2.3); Phosphorus 4.6 mg/dL (2.5-4.5); Potassium 4.3 mmol/L (3.5-5.1); Total Bilirubin 0.5 mg/dL (0.2-1.3); Total Protein 5.1 g/dL (6.3-8.2)
[2019-07-18] MEDS: INSULIN ASPART (NovoLOG) 100 UNIT/ML VIAL SQ SCH ×4 (08:54→21:28)
[2019-07-18] MEDS: PANTOPRAZOLE 40 MG/10 ML VIAL IVP SCH (08:56)
[2019-07-18] MEDS: MEMANTINE 10 MG TAB PO SCH ×2 (08:56→21:35)
[2019-07-18] MEDS: DONEPEZIL 10 MG TAB PO SCH (08:56)
[2019-07-18] MEDS: LISINOPRIL 10 MG TAB PO SCH ×2 (08:57→21:35)
[2019-07-18] MEDS: METOPROLOL TARTRATE 25 MG TAB PO SCH ×2 (08:57→21:35)
[2019-07-18] MEDS: CHOLECALCIFEROL 1,000 UNIT TAB PO SCH (08:57)
[2019-07-18] MEDS: ASPIRIN 81 MG PO SCH (08:57)
[2019-07-18] MEDS: HEPARIN SODIUM,PORCINE 5,000 UNIT/ML 1 ML VIAL SQ SCH ×2 (08:57→21:35)
[2019-07-18 11:14] LABS: Glucose,Whole Blood 133 mg/dL (75-99)
--- NOTE | 2019-07-18 11:30 | P.DS ---
Providers Date of admission: 07/11/19 12:51 Expected date of discharge: 07/18/19 Attending physician: Prince Chatman Consults: 07/10/19 18:44 Consult Physician Routine Consulting Provider: Yuki Paulino Consult Reason/Comments: cp Do you want consulting provider notified?: Yes 07/11/19 17:31 Consult Physician Routine Consulting Provider: Vita Hammer Consult Reason/Comments: cholecystitis Do you want consulting provider notified?: Already Contacted 07/12/19 10:21 Consult Physician Stat Consulting Provider: Dao Dewitt Consult Reason/Comments: Antibiotic management Do you want consulting provider notified?: Yes Primary care physician: [facility] [place] Course: Final Diagnoses: -Non-STEMI -Acute cholecystitis, status post robot-assisted cholecystectomy for perforated gallbladder. -Leukocytosis secondary to the above, improving -Acute UTI, E. 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 Troponins less than 0.012, 0.073, 0.103. Echo reported normal LV function, EF greater than 55% . Evaluated by cardiology, medical management recommended. Patient currently on heparin drip. CT reported ill- defined hypodensity within the anterior head of the pancreas measuring 3.5 x 1.2 cm, possible neoplasm, possible pancreatitis (though lipase only a 68)., Diverticulosis, nonspecific right adnexal large calcification -no specific, moderate size hiatal hernia, Abdominal ultrasound reporting acute cholecystitis with dilated common bile duct, pericholecystic fluid, biliary sludge and gallbladder wall thickening, visualization of pancreas suboptimal, limited evaluation of kidneys liver aorta with left renal cyst. Evaluated by surgery, HIDA scan ordered. Possible UTI with urine culture pending. Afebrile, WBC trending down, 15. Denies chest pain, palpitations or shortness of breath. Denies abdominal pain. Telemetry sinus bradycardia. 07/12/2019 HIDA scan consistent with acute cholecystitis and cystic duct obstruction. Abdomen MR reporting no evidence of pancreatic mass ,gallbladder hydrops, gallbladder sludge, thickening empiric cholecystic fluid compatible with cholecystitis, changes of diverticulosis of the colon noted with no definite pathological adenopathy, vertebral body hemangiomas, possible hepatic steatosis, paraspinal soft tissue muscular atrophy incidentally noted, possible disc herniation at T10-T11 encroaching upon spinal cord, abnormal signal centrall within spinal canal at presumed level L3-L4 possible small extruded disc fragment or intrathecal neoplasm. Urine culture reporting gram-negative bacilli .Maintained on IV Rocephin.Afebrile, vital signs stable. Denies abdominal pain. Denies chest pain, palpitations or shortness of breath. 07/16/2019 Maintained on PPN secondary to questionable aspiration. Swallow evaluation pending. Continues on IV Rocephin, Flagyl. BUN 11, creatinine 0.77 .Scheduled for cholecystectomy today. Denies nausea, vomiting, diarrhea. Denies abdominal pain. Denies chest pain, palpitations or shortness of breath. Systolic blood pressure ranging in the high 90s, currently. Denies lightheadedness, dizziness or focal deficits. Afebrile, normal WBC. 07/17/2019 status post robotic cholecystectomy with perforated gallbladder. Tolerated procedure well. Afebrile, WBC elevated at 16. Mildly elevated AST / ALT. Pain controlled. PPN weaned off, passed swallow evaluation as per speech therapy. Good diet intake with no nausea vomiting or diarrhea. Elevated blood sugars into the low 200s. Passing flatus, no bowel movement. Significant clinical improvement. Discharge antibiotics adjusted as per infectious disease. Cleared by all consults for discharge. Patient is being discharged to [facility] subacute rehab in a stable condition with guarded prognosis. EXAM: GENERAL: ALert & Oriented X 2, no acute distress CARDIOVASCULAR: S1, S2 regular.systolic murmur RESPIRATION: Breath sounds diminished in the bases. No rhonchi , crackles, or wheezing. ABDOMEN: Soft, status post surgery. No guarding. no masses palpable. Positive Bowel sounds. NERVOUS SYSTEM: Cranial N 2-12 grossly intact. Moves all 4 limbs. Diffuse weakness, No focal deficits. The impression and plan of care has been dictated as directed. : I performed a history and examination of this patient, discussed the same with the dictator. I agree with the dictator's note ,documented as a scribe. Any additional findings or plans will be noted. Time taken: 35 minutes Patient Condition at Discharge: Stable Plan - Discharge Summary Discharge Rx Participant: No New Discharge Prescriptions: New metroNIDAZOLE [Flagyl] 500 mg PO TID #30 tab Pantoprazole Sodium [Protonix] 40 mg PO DAILY #30 tablet. Acetaminophen Tab [Tylenol] 650 mg PO Q6HR PRN tab PRN Reason: Mild Pain Or Fever >= 100.5 Cefuroxime Axetil [Ceftin] 500 mg PO BID #20 tab Continue Levothyroxine Sodium [Synthroid] 25 mcg PO DAILY Donepezil [Aricept] 10 mg PO DAILY Atorvastatin [Lipitor] 80 mg PO HS #30 tab Enalapril [Vasotec] 5 mg PO BID #60 tab Metoprolol Tartrate [Lopressor] 25 mg PO BID #60 tab Nitroglycerin Sl Tabs [Nitrostat] 0.4 mg SUBLINGUAL Q5M PRN #25 tab PRN Reason: Chest Pain Cholecalciferol [Vitamin D3 (25 Mcg = 1000 Iu)] 1,000 unit PO DAILY Aspirin EC [Ecotrin Low Dose] 81 mg PO DAILY Diclofenac Sodium [Voltaren] 50 mg PO DAILY Memantine [Namenda] 10 mg PO BID Discharge Medication List Donepezil [Aricept] 10 mg PO DAILY 07/10/14 [History] Levothyroxine Sodium [Synthroid] 25 mcg PO DAILY 07/10/14 [History] Atorvastatin [Lipitor] 80 mg PO HS #30 tab 07/17/14 [Rx] Enalapril [Vasotec] 5 mg PO BID #60 tab 07/17/14 [Rx] Metoprolol Tartrate [Lopressor] 25 mg PO BID #60 tab 07/17/14 [Rx] Nitroglycerin Sl Tabs [Nitrostat] 0.4 mg SUBLINGUAL Q5M PRN #25 tab 07/17/14 [Rx] Aspirin EC [Ecotrin Low Dose] 81 mg PO DAILY 11/07/16 [History] Cholecalciferol [Vitamin D3 (25 Mcg = 1000 Iu)] 1,000 unit PO DAILY 11/07/16 [History] Diclofenac Sodium [Voltaren] 50 mg PO DAILY 11/07/16 [History] Memantine [Namenda] 10 mg PO BID 07/10/19 [History] metroNIDAZOLE [Flagyl] 500 mg PO TID #30 tab 07/17/19 [Rx] Acetaminophen Tab [Tylenol] 650 mg PO Q6HR PRN tab 07/18/19 [Rx] Cefuroxime Axetil [Ceftin] 500 mg PO BID #20 tab 07/18/19 [Rx] Pantoprazole Sodium [Protonix] 40 mg PO DAILY #30 tablet. 07/18/19 [Rx] Follow up Appointment(s)/Referral(s): Yuki Paulino MD [STAFF PHYSICIAN] - 08/05/19 2:00 pm (Appt set with Crystal) Prince Chatman MD [Primary Care Provider] - 07/22/19 10:00 am Vita Hammer MD [STAFF PHYSICIAN] - 07/23/19 3:40 pm () [facility], [NON-STAFF] - As Needed [facility], [NON-STAFF] - As Needed Patient Instructions/Handouts: Cholecystitis (GEN), Low Fat Diet (DC), Laparoscopic Cholecystectomy (DC) Activity/Diet/Wound Care/Special Instructions: [facility]. Final ANtibx Rec. pending from ID March shower. No bath tub soaks. CBC, BMP in 3 days DIet: COnsist. carb/low fat Discharge Disposition: TRANSFER TO SNF/ECF
--- NOTE | 2019-07-18 14:14 | P.PN ---
<Kathryn Santiago A - Last Filed: 07/18/19 14:10> Subjective Progress Note Date: 07/18/19 CHIEF COMPLAINT: Cholecystitis HISTORY OF PRESENT ILLNESS: Patient is status post robotic cholecystectomy. Postoperative day #2. Spouse at bedside. She reports her pain is tolerable. Tolerating diet. Denies nausea or vomiting. said patient had a few bites of everything on her breakfast tray. WBC 13.3. PHYSICAL EXAM: VITAL SIGNS: Reviewed GENERAL: Well-developed in no acute distress. HEENT: No sclera icterus. Extraocular movements grossly intact. Moist buccal mucosa. Head is atraumatic, normocephalic. Hears conversational speech. No nasal drainage. NECK: Supple without lymphadenopathy. CHEST: Non-labored respirations and equal bilateral excursions. CARDIOVASCULAR: Regular rate with regular rhythm. Palpable 2+ radial pulses. ABDOMEN: Soft. Nondistended. Nontender. Surgical sites clean dry intact without drainage. MUSCULOSKELETAL: No clubbing, cyanosis or edema. NEUROLOGIC: No focal or lateralizing signs. Cranial nerves II through XII grossly intact. PSYCH: Appropriate affect. Alert and oriented x 1-2. SKIN: Well perfused. Good skin turgor. ASSESSMENT: 1. Acute cholecystitis, status post robotic cholecystectomy PLAN: 1. Pain control 2. Diet as tolerated 3. Incentive spirometry 4. Activity as tolerated 5. Stable for discharge from surgical standpoint on oral antibiotics. Dr. Dewitt recommending Ceftin and Flagyl at discharge. Patient now being discharged to [facility] for subacute Rehab. Patient to follow up with Dr. Hammer on 08/06/2019. Nurse practitioner note has been reviewed by physician. Signing provider agrees with the documented findings, assessment, and plan of care. Objective - Vital Signs Vital signs: Vital Signs Temp 99.7 F H 07/18/19 06:49 Pulse 70 07/18/19 06:49 Resp 18 07/18/19 06:49 BP 115/61 07/18/19 06:49 Pulse Ox 94 L 07/18/19 06:49 Intake & Output 07/17/19 07/18/19 07/18/19 18:59 06:59 18:59 Intake Total 100 480 Balance 100 480 Weight 56 kg Intake: Intake, IV Titration 100 Amount metroNIDAZOLE-NS PMX 500 100 mg In Saline 1 100ml.bag @ 100 mls/hr IVPB Q8H [facility] Rx#:[id number] Oral 480 Other: Voiding Method Diaper Diaper Diaper Incontinent # Voids 2 1 - Labs CBC & Chem 7: 07/18/19 06:41 07/18/19 06:41 Labs: Abnormal Lab Results - Last 24 Hours (Table) 07/17/19 07/17/19 07/18/19 Range/Units 17:57 20:16 06:41 WBC (3.8-10.6) k/uL RBC (3.80-5.40) m/uL Hgb (11.4-16.0) gm/dL Hct (34.0-46.0) % RDW (11.5-15.5) % Neutrophils # (1.3-7.7) k/uL Chloride 108 H (98-107) mmol/L Glucose 120 H (74-99) mg/dL POC Glucose (mg/dL) 108 H 161 H (75-99) mg/dL Calcium 8.2 L (8.4-10.2) mg/dL Phosphorus 4.6 H (2.5-4.5) mg/dL AST 78 H (14-36) U/L ALT 67 H (9-52) U/L Total Protein 5.1 L (6.3-8.2) g/dL Albumin 2.8 L (3.5-5.0) g/dL 07/18/19 07/18/19 07/18/19 Range/Units 06:41 06:49 11:02 WBC 13.3 H (3.8-10.6) k/uL RBC 3.77 L (3.80-5.40) m/uL Hgb 10.1 L (11.4-16.0) gm/dL Hct 31.1 L (34.0-46.0) % RDW 15.8 H (11.5-15.5) % Neutrophils # 9.7 H (1.3-7.7) k/uL Chloride (98-107) mmol/L Glucose (74-99) mg/dL POC Glucose (mg/dL) 133 H 133 H (75-99) mg/dL Calcium (8.4-10.2) mg/dL Phosphorus (2.5-4.5) mg/dL AST (14-36) U/L ALT (9-52) U/L Total Protein (6.3-8.2) g/dL Albumin (3.5-5.0) g/dL Microbiology - Last 24 Hours (Table) 07/11/19 08:55 Urine Culture - Final Urine,Voided Escherichia coli Assessment and Plan (1) Acute cholecystitis Current Visit: Yes Status: Acute Code(s): K81.0 - ACUTE CHOLECYSTITIS SNOMED Code(s): 83773109 <Vita Hammer N - Last Filed: 07/18/19 15:44> Subjective All questions addressed with the patient including her at bedside. Follow-up after discharge from [facility] in 2-3 weeks. Objective - Vital Signs Vital signs: Vital Signs Temp 99.4 F 07/18/19 15:06 Pulse 65 07/18/19 15:06 Resp 18 07/18/19 15:06 BP 112/65 07/18/19 15:06 Pulse Ox 97 07/18/19 15:06 Intake & Output 07/17/19 07/18/19 07/18/19 18:59 06:59 18:59 Intake Total 100 480 Balance 100 480 Weight 56 kg Intake: Intake, IV Titration 100 Amount metroNIDAZOLE-NS PMX 500 100 mg In Saline 1 100ml.bag @ 100 mls/hr IVPB Q8H [facility] Rx#:[id number] Oral 480 Other: Voiding Method Diaper Diaper Diaper Incontinent # Voids 2 1 2 - Labs CBC & Chem 7: 07/18/19 06:41 07/18/19 06:41 Labs: Abnormal Lab Results - Last 24 Hours (Table) 07/17/19 07/17/19 07/18/19 Range/Units 17:57 20:16 06:41 WBC (3.8-10.6) k/uL RBC (3.80-5.40) m/uL Hgb (11.4-16.0) gm/dL Hct (34.0-46.0) % RDW (11.5-15.5) % Neutrophils # (1.3-7.7) k/uL Chloride 108 H (98-107) mmol/L Glucose 120 H (74-99) mg/dL POC Glucose (mg/dL) 108 H 161 H (75-99) mg/dL Calcium 8.2 L (8.4-10.2) mg/dL Phosphorus 4.6 H (2.5-4.5) mg/dL AST 78 H (14-36) U/L ALT 67 H (9-52) U/L Total Protein 5.1 L (6.3-8.2) g/dL Albumin 2.8 L (3.5-5.0) g/dL 07/18/19 07/18/19 07/18/19 Range/Units 06:41 06:49 11:02 WBC 13.3 H (3.8-10.6) k/uL RBC 3.77 L (3.80-5.40) m/uL Hgb 10.1 L (11.4-16.0) gm/dL Hct 31.1 L (34.0-46.0) % RDW 15.8 H (11.5-15.5) % Neutrophils # 9.7 H (1.3-7.7) k/uL Chloride (98-107) mmol/L Glucose (74-99) mg/dL POC Glucose (mg/dL) 133 H 133 H (75-99) mg/dL Calcium (8.4-10.2) mg/dL Phosphorus (2.5-4.5) mg/dL AST (14-36) U/L ALT (9-52) U/L Total Protein (6.3-8.2) g/dL Albumin (3.5-5.0) g/dL Microbiology - Last 24 Hours (Table) 07/11/19 08:55 Urine Culture - Final Urine,Voided Escherichia coli
[2019-07-18 16:42] LABS: Hemoglobin A1C 6.3 % (4.0-6.0)
[2019-07-18 17:21] LABS: Glucose,Whole Blood 156 mg/dL (75-99)
[2019-07-18 21:28] LABS: Glucose,Whole Blood 110 mg/dL (75-99)
[2019-07-18 21:28] LABS: Glucose,Whole Blood 117 mg/dL (75-99)
[2019-07-18] MEDS: ATORVASTATIN 40 MG TAB PO SCH (21:35)
--- NOTE | 2019-07-18 21:50 | PN ---
PROGRESS NOTE DATE OF SERVICE: 07/19/2019 REASON FOR FOLLOWUP: Acute cholecystitis and leukocytosis. INTERVAL HISTORY: The patient did have a low-grade fever this morning of 99.7 degrees. She has been afebrile since then. The patient has been breathing comfortably. Denies having any chest pain or any cough. No abdominal pain. No nausea, vomiting. No diarrhea. Currently waiting for insurance approval for discharge to rehab. PHYSICAL EXAMINATION: Blood pressure 112/65, pulse of 65, temperature 99.4. She is 97% on room air. General description is an elderly female up in the chair in no distress. RESPIRATORY SYSTEM: Unlabored breathing with decreased breath sounds at the base. HEART: S1, S2. Regular rate and rhythm. ABDOMEN: Soft. No tenderness. LABS: Hemoglobin is 10.1, white count 13.3, BUN of 17, creatinine 0.94. DIAGNOSTIC IMPRESSION AND PLAN: Patient with acute cholecystitis, perforated, status post laparoscopic cholecystectomy. Patient is currently covered with Rocephin and Flagyl. White count has shown a downward trend. Plan to finish therapy with oral Ceftin and Flagyl combination for another 10 days. Continue with supportive care. MMODL / IJN: [id number] /
[2019-07-19] MEDS: metroNIDAZOLE-NS PMX 500 MG in SALINE 1 100ML.BAG IVPB SCH ×2 (04:04→11:21)
[2019-07-19] MEDS: LACTATED RINGERS 1,000 ML IV SCH (05:38)
[2019-07-19] MEDS: LEVOTHYROXINE 25 MCG TAB PO SCH (06:14)
[2019-07-19 07:02] LABS: Glucose,Whole Blood 133 mg/dL (75-99)
[2019-07-19] MEDS: INSULIN ASPART (NovoLOG) 100 UNIT/ML VIAL SQ SCH ×2 (07:08→11:47)
[2019-07-19 07:27] VITALS: BP 111/65; PULSE 64; RESP 18; TEMP 98.3
[2019-07-19] MEDS: PANTOPRAZOLE 40 MG/10 ML VIAL IVP SCH (08:50)
[2019-07-19] MEDS: METOPROLOL TARTRATE 25 MG TAB PO SCH (08:59)
[2019-07-19] MEDS: MEMANTINE 10 MG TAB PO SCH (08:59)
[2019-07-19] MEDS: ASPIRIN 81 MG PO SCH (08:59)
[2019-07-19] MEDS: DONEPEZIL 10 MG TAB PO SCH (08:59)
[2019-07-19] MEDS: LISINOPRIL 10 MG TAB PO SCH (08:59)
[2019-07-19] MEDS: CHOLECALCIFEROL 1,000 UNIT TAB PO SCH (08:59)
[2019-07-19] MEDS: HEPARIN SODIUM,PORCINE 5,000 UNIT/ML 1 ML VIAL SQ SCH (08:59)
[2019-07-19 09:26] LABS: Albumin 2.8 g/dL (3.5-5.0); Calcium 8.2 mg/dL (8.4-10.2); Magnesium 1.9 mg/dL (1.6-2.3); Phosphorus 4.3 mg/dL (2.5-4.5); Total Bilirubin 0.5 mg/dL (0.2-1.3); Total Protein 5.2 g/dL (6.3-8.2)
[2019-07-19 10:11] LABS: Basophils # (A) 0.1 k/uL (0-0.2); Basophils % (A) 1 %; Eosinophils # (A) 0.4 k/uL (0-0.7); Eosinophils % (A) 4 %; HCT 31.6 % (34.0-46.0); HGB 10.3 gm/dL (11.4-16.0); Lymphocytes # (A) 1.8 k/uL (1.0-4.8); Lymphocytes % (A) 20 %; MCHC 32.7 g/dL (31.0-37.0); MCV 82.6 fL (80.0-100.0); Mean Platelet Volume 9.1; Monocytes # (A) 0.7 k/uL (0-1.0); Monocytes % (A) 8 %; Neutrophils % (A) 66 %; Platelet Count 217 k/uL (150-450); RBC 3.82 m/uL (3.80-5.40); WBC 9.1 k/uL (3.8-10.6)
[2019-07-19 11:20] LABS: Glucose,Whole Blood 164 mg/dL (75-99)
--- NOTE | 2019-07-19 16:33 | PN ---
PROGRESS NOTE DATE OF SERVICE: 07/19/2019. REASON FOR FOLLOWUP: Acute cholecystitis, perforated. INTERVAL HISTORY: The patient was seen on rounds early this afternoon. The patient has been afebrile. She has been breathing comfortably. She was complaining of some difficulty swallowing, though, but no nausea, no vomiting, no abdominal pain and no diarrhea. PHYSICAL EXAMINATION: Her blood pressure is 111/65 with a pulse of 64, temperature 98.3. She is 95% on room air. General description is an elderly female up in the bed in no distress. RESPIRATORY SYSTEM: Unlabored breathing. Clear to auscultation anteriorly. HEART: S1, S2. Regular rate and rhythm. ABDOMEN: Soft. No tenderness. LABS: Hemoglobin is 10.3, white count 9.1. BUN of 14, creatinine 0.87. DIAGNOSTIC IMPRESSION AND PLAN: Patient with acute perforated colon, status post laparoscopic cholecystectomy. Patient's white count has normalized. She did well on Rocephin and Flagyl; hence recommend Ceftin and Flagyl for 7 to 10 days on discharge. Prescription was provided for the patient. Continue with supportive care. MMODL / IJN: [id number] /
[2019-07-20] MEDS ORDERED: PANTOPRAZOLE 40 MG TABLET PO SCH (07:30)
== END 2019-07-19 14:20 | DRG 417 ==
LOC: EC 12:18 → 1SOBS 16:04 → OBSVTOIN 07-11 12:51 → 4SSUR 07-12 14:39
PROVIDERS: ADMIT Family Medicine; ATTEND Family Medicine
PROC: 8E0W4CZ Robotic Assisted Procedure of Trunk Region, Percutaneous Endoscopic Approach (ICD-10-PCS; 2019-07-16)
PROC: 0FT44ZZ Resection of Gallbladder, Percutaneous Endoscopic Approach (ICD-10-PCS; principal; 2019-07-16 11:00)
DX: K81.2 Acute cholecystitis with chronic cholecystitis (principal); I21.4 Non-ST elevation (NSTEMI) myocardial infarction; K82.A2 Perforation of gallbladder in cholecystitis; K82.1 Hydrops of gallbladder; J98.11 Atelectasis; N39.0 Urinary tract infection, site not specified; B96.20 Unspecified Escherichia coli [E. coli] as the cause of diseases classified elsewhere; E03.9 Hypothyroidism, unspecified; E11.65 Type 2 diabetes mellitus with hyperglycemia; E78.5 Hyperlipidemia, unspecified; E87.6 Hypokalemia; F02.80 Dementia in other diseases classified elsewhere, unspecified severity, without behavioral disturbance, psychotic disturbance, mood disturbance, and anxiety; G30.9 Alzheimer's disease, unspecified; I10 Essential (primary) hypertension; I25.10 Atherosclerotic heart disease of native coronary artery without angina pectoris; I25.5 Ischemic cardiomyopathy; K44.9 Diaphragmatic hernia without obstruction or gangrene; K57.90 Diverticulosis of intestine, part unspecified, without perforation or abscess without bleeding; K66.0 Peritoneal adhesions (postprocedural) (postinfection); R13.10 Dysphagia, unspecified; M19.90 Unspecified osteoarthritis, unspecified site; D49.0 Neoplasm of unspecified behavior of digestive system; Z98.49 Cataract extraction status, unspecified eye; Z79.82 Long term (current) use of aspirin; Z79.890 Hormone replacement therapy; Z79.899 Other long term (current) drug therapy; Z82.49 Family history of ischemic heart disease and other diseases of the circulatory system; Z82.5 Family history of asthma and other chronic lower respiratory diseases; Z88.0 Allergy status to penicillin; Z95.5 Presence of coronary angioplasty implant and graft; Z88.5 Allergy status to narcotic agent; Z80.9 Family history of malignant neoplasm, unspecified; Z83.2 Family history of diseases of the blood and blood-forming organs and certain disorders involving the immune mechanism
CPT/HCPCS: 36415; 71046; 71250; 74176; 74183; 76700; 78226; 80048; 80053; 81001; 82330; 83036; 83690; 83735; 83880; 84100; 84478; 84484; 85025; 85027; 85610; 85730; 87077; 87086; 87186; 87324; 88304; 93005; 93306; 99285

== ENCOUNTER → 2019-08-21 | Outpatient (CLI) | payer MEDICARE ==
[2019-08-21 16:53] LABS: Albumin/Globulin Ratio 2.35 (1.60-3.17); Anion Gap 9.6 mmol/L (4.00-12.00); Calcium 8.7 mg/dL (8.7-10.3); Carbon Dioxide 26.4 mmol/L (21.6-31.8); Chol/HDL Ratio 2.52; Globulin 1.7 g/dL (1.6-3.3); LDL Cholesterol,Calculated 43.2 mg/dL (0.0-131.0); Potassium 4.9 mmol/L (3.5-5.5); Total Bilirubin 0.4 mg/dL (0.3-1.2); Total Protein 5.7 g/dL (6.2-8.2); VLDL Calculation 38.8 mg/dL (5.00-40.00)
== END ==
LOC: LABWHC1 10:23
PROVIDERS: ATTEND Nurse Practitioner Adult Health
DX: E78.2 Mixed hyperlipidemia (principal); I10 Essential (primary) hypertension
CPT/HCPCS: 36415; 80053; 80061

== ENCOUNTER → 2020-06-16 | Outpatient (CLI) | payer MEDICARE ==
[2020-06-16 18:53] LABS: African American GFR (CKD) 60.8 (60.0-200.0); Albumin 4.2 g/dL (3.80-4.90); Albumin/Globulin Ratio 1.91 (1.60-3.17); Anion Gap 11.3 mmol/L (4.00-12.00); Calcium 9.3 mg/dL (8.7-10.3); Carbon Dioxide 29.7 mmol/L (21.6-31.8); Chol/HDL Ratio 2.32; Globulin 2.2 g/dL (1.6-3.3); LDL Cholesterol,Calculated 36.2 mg/dL (0.0-131.0); Non-African American GFR(CKD) 52.4 (60.0-200.0); Potassium 4.2 mmol/L (3.5-5.5); Total Bilirubin 0.6 mg/dL (0.2-1.2); Total Protein 6.4 g/dL (6.2-8.2); VLDL Calculation 42.8 mg/dL (5.00-40.00)
== END | disposition home or self-care (01) ==
LOC: LABWHC1 11:09
PROVIDERS: ATTEND Internal Medicine Interventional Cardiology
DX: E78.2 Mixed hyperlipidemia (principal)
CPT/HCPCS: 36415; 80053; 80061

== ENCOUNTER 2021-02-07 17:05 | Emergency (ER) | payer MEDICARE ==
[2021-02-07 17:21] VITALS: RESP 16
--- NOTE | 2021-02-07 18:10 | XR ---
EXAMINATION TYPE: XR chest 1V portable DATE OF EXAM: 02/07/2021 COMPARISON: 07/11/2019 HISTORY: Fever and shortness of breath TECHNIQUE: Single frontal view of the chest is obtained. FINDINGS: There is moderate diffuse interstitial opacities. There is mild involvement of the left billy ng base. No significant pleural effusion, or pneumothorax seen. The cardiac silhouette size is withi n normal limits. The osseous structures are intact. IMPRESSION: Interstitial opacities, concerning for infiltrates.
--- NOTE | 2021-02-07 18:15 | ED ---
General Adult HPI - General Chief complaint: Fever Stated complaint: Fever Time Seen by Provider: 02/07/21 17:16 Source: EMS Mode of arrival: EMS Limitations: altered mental status - History of Present Illness Initial comments: Dictation was produced using [employer] dictation software. please excuse any grammatical, word or spelling errors. This patient was cared for during a federal and state declared state of emergency secondary to Covid 19 Chief Complaint: 85-year-old female accompanied by presents emergency department for Covid 19 testing History of Present Illness: Is 85-year-old female she has severe dementia, dyslipidemia hypertension. Patient unable to provide history of present illness at this time. HPI obtained from and patient's son over the phone. According to family members patient was exposed to Covid 19 from family members who tested positive. According to patient has been having a mild cough and low-grade fever. The ROS documented in this emergency department record has been reviewed and confirmed by me. Those systems with pertinent positive or negative responses have been documented in the HPI. All other systems are other negative and/or noncontributory. PHYSICAL EXAM: General Impression: Alert, not in acute distress HEENT: Normocephalic atraumatic, extra-ocular movements intact, pupils equal and reactive to light bilaterally, mucous membranes moist. Cardiovascular: Heart regular rate and rhythm Chest: Able to complete full sentences, no retractions, no tachypnea Abdomen: abdomen soft, non-tender, non-distended, no organomegaly Musculoskeletal: Pulses present and equal in all extremities, no peripheral edema Motor: no focal deficits noted Neurological: CN II-XII grossly intact, no focal motor or sensory deficits noted Skin: Intact with no visualized rashes Psych: Normal affect and mood ED course: 85 y Old female presents accompanied by [place] Covid 19 testing. Vital signs upon arrival shows 91% on room air, rest of vital signs within acceptable limits. Chest x-ray shows infiltrates. covid 19 test is positive. Patient is not hypoxic. She meets criteria for monoclonal antibody infusion. Patient tolerated infusion. No adverse outcomes. Observed in emergency department for one hour after the infusion. Return parameters is discussed. Patient be discharged. - Related Data Home Medications Medication Instructions Recorded Confirmed Donepezil [Aricept] 10 mg PO DAILY 07/10/14 07/10/19 Levothyroxine Sodium [Synthroid] 25 mcg PO DAILY 07/10/14 07/10/19 Aspirin EC [Ecotrin Low Dose] 81 mg PO DAILY 11/07/16 07/10/19 Cholecalciferol [Vitamin D3 (25 1,000 unit PO DAILY 11/07/16 07/10/19 Mcg = 1000 Iu)] Diclofenac Sodium [Voltaren] 50 mg PO DAILY 11/07/16 07/10/19 Memantine [Namenda] 10 mg PO BID 07/10/19 07/10/19 Previous Rx's Medication Instructions Recorded Atorvastatin [Lipitor] 80 mg PO HS #30 tab 07/17/14 Enalapril [Vasotec] 5 mg PO BID #60 tab 07/17/14 Metoprolol Tartrate [Lopressor] 25 mg PO BID #60 tab 07/17/14 Nitroglycerin Sl Tabs [Nitrostat] 0.4 mg SUBLINGUAL Q5M PRN #25 tab 07/17/14 metroNIDAZOLE [Flagyl] 500 mg PO TID #30 tab 07/17/19 Acetaminophen Tab [Tylenol] 650 mg PO Q6HR PRN tab 07/18/19 Cefuroxime Axetil [Ceftin] 500 mg PO BID #20 tab 07/18/19 Pantoprazole Sodium [Protonix] 40 mg PO DAILY #30 tablet. 07/18/19 Allergies Allergy/AdvReac Type Severity Reaction Status Date / Time Penicillins Allergy Unknown Verified 02/07/21 17:21 propoxyphene HCl Allergy Confusion Verified 02/07/21 17:21 [From Darryl] Review of Systems ROS Statement: Those systems with pertinent positive or pertinent negative responses have been documented in the HPI. ROS Other: All systems not noted in ROS Statement are negative. Past Medical History Past Medical History: Dementia, Hyperlipidemia, Hypertension, Osteoarthritis (OA), Thyroid Disorder Additional Past Medical History / Comment(s): ALZHEIMER'S History of Any Multi-Drug Resistant Organisms: None Reported Date of last positivie culture/infection: 07/11/19 MDRO Source:: ESBL URINE Past Surgical History: Heart Catheterization With Stent, Tonsillectomy Additional Past Surgical History / Comment(s): cataract surgery, colonoscopy, Past Anesthesia/Blood Transfusion Reactions: No Reported Reaction Date of Last Stent Placement:: 2014 Past Psychological History: No Psychological Hx Reported Past Alcohol Use History: None Reported Past Drug Use History: None Reported - Past Family History Mother Family Medical History: Asthma Father Family Medical History: Deep Vein Thrombosis (DVT), Myocardial Infarction (CO) Additional Family Medical History / Comment(s): at 59 Sister(s) Family Medical History: Cancer Additional Family Medical History / Comment(s): 2 SISTERS HAD CANCER General Exam Limitations: altered mental status Course Vital Signs 02/07/21 02/07/21 02/07/21 17:13 18:21 18:23 Temperature 98.8 F 97.9 F Pulse Rate 55 L 64 Respiratory 16 16 16 Rate Blood Pressure 117/43 O2 Sat by Pulse 91 L 93 L Oximetry 02/07/21 02/07/21 20:30 21:45 Temperature 97.4 F L Pulse Rate 65 68 Respiratory 16 16 Rate Blood Pressure 128/44 123/59 O2 Sat by Pulse 92 L 93 L Oximetry Medical Decision Making - Lab Data Lab Results 02/07/21 Range/Units 17:53 Coronavirus (PCR) Detected A (Not Detectd) Disposition Clinical Impression: COVID-19 Disposition: HOME SELF-CARE Condition: Fair Instructions (If sedation given, give patient instructions): Viral Pneumonia (ED) Additional Instructions: Today you were evaluated for symptoms consistent with upper respiratory infection. Today you tested positive for Covid 19. Your are stable for discharge, however it is instructed to to seek immediate medical attention especially if you develop worsening symptoms especially respiratory distress. If possible, try to obtain a pulse oximeter and monitor your oxygen at home. In the meantime please remain in quarantine for 14 days. For any other questions please contact Meagan for here in emergency department or [facility] at [phone] Is patient prescribed a controlled substance at d/c from ED?: No Referrals: Prince Chatman MD [Primary Care Provider] - 1-2 days Time of Disposition: 21:54
[2021-02-07] MEDS ORDERED: BAMLANIVIMAB 700 MG in SODIUM CHLORIDE 0.9% 50 ML IVPB ONE (20:15)
[2021-02-07 20:30] VITALS: TEMP 97.4
[2021-02-07 21:47] VITALS: BP 123/59; PULSE 68
== END 2021-02-07 22:00 | disposition home or self-care (01) ==
LOC: EC 17:05
DX: U07.1 COVID-19 (principal); G30.9 Alzheimer's disease, unspecified; E78.5 Hyperlipidemia, unspecified; I10 Essential (primary) hypertension; M19.90 Unspecified osteoarthritis, unspecified site; F02.80 Dementia in other diseases classified elsewhere, unspecified severity, without behavioral disturbance, psychotic disturbance, mood disturbance, and anxiety; Z79.82 Long term (current) use of aspirin; Z79.1 Long term (current) use of non-steroidal anti-inflammatories (NSAID)
CPT/HCPCS: 87635; 71045; 99284; 96374; Q0239